=== PATIENT | male | born 1950 | race Caucasian/White ===

== ENCOUNTER 2016-09-11 22:35 | Inpatient (IN) | payer OTHER ==
[~2016-09-11] VITALS: Ht 177.8 cm; Wt 89.5 kg
--- NOTE | ~2016-09-11 | CON ---
[place], [place] REPORT OF CONSULTATION NAME: SENAIT VOGT UNIT #: [id number] ROOM: 531 DOCTOR: JULIA UNDERWOOD,DELON Bledsoe BIRTHDATE: [birth year] DOS: 09/12/2016 ADDENDUM: I agree with the above plans to treat this patient after reviewing the chart, labs and radiographs. Follow the patient up clinically and adjust accordingly. DELON DUMONT MD CM:CONSTR:REPORT OF CONSULTATION 1544 10/22/16 0555 interface
--- NOTE | ~2016-09-11 | CON ---
[place], [place] REPORT OF CONSULTATION NAME: SENAIT VOGT UNIT #: [id number] ROOM: 531 DOCTOR: AMEENA BOWENS,NOVEMBER BIRTHDATE: [birth year] DOS: HISTORY OF PRESENT ILLNESS: The patient is a pleasant 65-year-old male who was admitted with intoxication and chest pain overnight. He had had chest pain intermittently for approximately 3 days. He gave a history of a tick bite in his left upper extremity. There was concern that the entire tick had not been removed. He, according to the nurse resident, did explore the area this morning. He was started on doxycycline, there was also concern for possible pneumonia on his chest x-ray when he was admitted; however, he has had a CT of the chest that did not demonstrate any infiltrate. He has no cough. He has had no fevers or shaking chills and he has a normal white count. He denies any headache, dizziness, or rashes. PAST MEDICAL HISTORY: As above as well as essential hypertension, GERD, hiatal hernia, hyperlipidemia, peripheral neuropathy, inguinal hernia, CABG x 4, coronary artery stent. SOCIAL HISTORY: Alcohol abuse with 3-6 shots of whisky per day, reportedly more per the family. He stopped smoking in 1991, had approximately a [id number] history. No illicit drug use. 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 FAMILY MEDICAL HISTORY: Mother at the age of 86 of unknown causes. Father in his 60s from pancreatic cancer. ALLERGIES: Include DEMEROL. LABORATORY DATA: WBCs 4.1, platelets 184, BUN 12, creatinine 0.74. AST 53, ALT 42. His troponin is normal, as is his CK-MB. CRP 0.57, lipase 194. Blood cultures are sterile. REVIEW OF SYSTEMS: Alert and oriented, feels well. Denies any fevers or chills. No cough or shortness of breath. He did have chest pain that has since improved. No nausea, vomiting or diarrhea. No joint pain or swelling. No headache or dizziness. No rashes. No dysuria or frequency. No hemoptysis, no issues with blood dyscrasias or bleeding. PHYSICAL EXAMINATION: VITAL SIGNS: Show temperature 98.4, pulse 70, respirations 18, BP 145/86. GENERAL: A 65-year-old male, in no acute distress. HEAD, EYES, EARS, NOSE, AND THROAT: Normocephalic, no thrush. LUNGS: Clear to auscultation bilaterally. Respirations are even and unlabored. HEART: Regular rhythm. No murmur appreciated. ABDOMEN: Soft, nontender, positive bowel sounds. Mildly obese. EXTREMITIES: No edema, deformity or cyanosis. Left upper extremity where he allegedly had a tick bite is unremarkable for any rash or bull's eye lesion. SKIN: Warm, dry and intact, free of rashes. ASSESSMENT: CT does not demonstrate pneumonia nor is he symptomatic for any pneumonia. He is not symptomatic for Lyme's nor does he have any indication from a characteristic rash, etc. I did discuss this with him. At this point, I [place], [place] REPORT OF CONSULTATION NAME: SENAIT VOGT UNIT #: [id number] ROOM: 531 DOCTOR: AMEENA BOWENSNOVEMBER BIRTHDATE: [birth year] will stop his doxycycline. He would be okay to discharge from an ID perspective. Case discussed with Dr. Delon Dumont. NANCY LINDQUIST CNP DELON DUMONT MD CM:CONSTR:REPORT OF CONSULTATION 20 09/12/161854 interface
--- NOTE | ~2016-09-11 | PR ---
[place], [place] PROGRESS NOTE NAME: SENAIT VOGT [facility] #: [id number] UNIT #: [id number] ROOM: 531 DOCTOR: STEPHANIE FREEMAN MD BIRTHDATE: [birth year] DOS: 09/13/2016 CARDIOLOGY FOLLOWUP VISIT NOTE REASON FOR VISIT: Chest pain. HISTORY OF PRESENT ILLNESS: The patient is feeling better. Denies any chest pain or shortness of breath. No palpitation, no dizziness. No PND. He denies any edema, orthopnea. He only complains some burning in his feet, some neuropathy. REVIEW OF SYSTEMS: Review of the 8 systems negative. RHYTHM STRIPS: The patient was in nonmonitored floor. PHYSICAL EXAMINATION: VITAL SIGNS: Blood pressure 148/82, pulse 69, respiration rate 18. GENERAL: Alert, comfortable, in no acute distress. HEENT: Pupils are round and equal. No jaundice. Tongue was moist and pharynx was clear. NECK: Supple, no distended neck veins, no carotid bruit. Thyroid not palpable. CHEST: Chest wall was symmetrical, nontender. LUNGS: Clear to auscultation bilaterally. HEART: Regular rhythm, no S3, no palpable thrills. ABDOMEN: Obese, nontender. Bowel sounds normal. EXTREMITIES: Showed no edema. Distal pulses are palpable. SKIN: Warm and dry. No cyanosis, no clubbing. NEUROLOGIC: The patient is alert, oriented. No focal neurologic deficit. DIAGNOSTIC TESTS: Review of the diagnostic test. CBC unremarkable. Hemoglobin 12.9. Chemistry showed potassium 3.3, creatinine 0.77 IMPRESSION: 1. Atypical chest pain, myocardial infarction ruled out. 2. History of coronary artery disease, status post multiple stents, possibly five stents per patient, the recent stent was in 2005. 3. Hypertension. 4. Obesity. 5. Mild anemia. 6. Tick bite. 7. Mild hypokalemia. RECOMMENDATIONS: 1. He has no further chest pain. He stated that he had stress test about 6 months ago unremarkable, he is also anticipating hiatal hernia surgery. 2. Resume his home aspirin, statins and also beta blockers. He states he takes metoprolol at home. He can be discharged from the cardiac point and follow up with his [place] physician also Dr. 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 [place], [place] PROGRESS NOTE NAME: SENAIT VOGT UNIT #: [id number] ROOM: 531 DOCTOR: PETE UNDERWOOD,STEPHANIE BIRTHDATE: [birth year] Above treatment was discussed with the patient and his family members who are at bedside and all questions were answered. 3. Risk factor modification for diet, exercise, and weight loss were discussed. STEPHANIE FREEMAN MD CM:LULY 1235 [id number] STEPHANIE FREEMAN MD 09/14/16 0928 interface
--- NOTE | ~2016-09-11 | CON ---
[place], [place] REPORT OF CONSULTATION NAME: SENAIT VOGT UNIT #: [id number] ROOM: 531 DOCTOR: PETE UNDERWOOD,STEPHANIE BIRTHDATE: [birth year] DOS: 09/12/2016 CARDIOLOGY CONSULTATION CONSULTING PHYSICIAN: Yany Hale DO PRIMARY CARE PHYSICIAN: Sylvester Barber MD REASON FOR CONSULTATION: Chest pain. HISTORY OF PRESENT ILLNESS: The patient is a 65-year-old gentleman with history of coronary artery disease, obesity, came to the Emergency Room with chest pain. He is known to Dr. Booth in [place], [place], and he had a previous history of "5 stents" per him, records not available. Apparently, he is having intermittent chest pain for the past 2-3 days prior to presentation to the Emergency Room. This pain came at rest while sitting in front of computer. This pain was started in the substernal area. There is no radiation of this pain, no associated nausea, diaphoresis, or shortness of breath. The pain is moderate, on a scale of 10, it is 6/10. He takes three sublingual nitroglycerin tablets with some relief. He also admitted to drinking some whisky. Apparently, there is some history of recurrent falls, but no syncope. He is saying sometimes he had some cold sweats with his chest pain, but denied any fever or chills. He was eventually brought to the Emergency Room, was admitted to the hospital and Cardiology was consulted for his chest pain, but he denied any fever or chills. No PND, no orthopnea, no palpitations or dizziness. No nausea, vomiting or diarrhea. No headache. No tingling, numbness or weakness. No hematuria, no dysuria. REVIEW OF SYSTEMS: Review of the 8 systems negative except as mentioned above. PAST MEDICAL HISTORY: 1. Coronary artery disease, status post multiple stents about five stents, last stent was around 2005 per patient, details unknown. 2. Exogenous obesity. 3. Dyslipidemia. 4. Hypertension. 5. Hiatal hernia. 6. GERD. PAST SURGICAL HISTORY: History of coronary artery stents. SOCIAL HISTORY: The patient does not smoke or use illicit drugs, but he drinks 3-6 shots of whiskey a day. FAMILY HISTORY: Mother from unknown causes. Father had pancreatic cancer, . ALLERGIES: No known drug allergies. 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 [place], [place] REPORT OF CONSULTATION NAME: SENAIT VOGT UNIT #: [id number] ROOM: 531 DOCTOR: PETE UNDERWOOD,STEPHANIE BIRTHDATE: [birth year] HOME MEDICATIONS: Reviewed including aspirin, atorvastatin, amlodipine, omeprazole and Nitrostat. PHYSICAL EXAMINATION: VITAL SIGNS: Blood pressure 150/90, pulse 70, respiration was 18. Weight 90.4 kilos with a BMI 28.6. GENERAL: Alert, comfortable, in no acute distress. HEENT: Pupils are round and equal. No jaundice. Tongue was moist and pharynx was clear. NECK: Supple, no distended neck veins, no carotid bruit. Thyroid is not palpable. CHEST: Symmetrical, nontender. LUNGS: Clear to auscultation bilaterally. HEART: Regular rhythm, no S3, grade 1/6 systolic murmur. No palpable thrills. ABDOMEN: Obese, nontender. Bowel sounds normal. No palpable mass. EXTREMITIES: Showed no edema. Distal pulses are palpable. SKIN: Warm and dry. No cyanosis, no clubbing. NEUROLOGIC: The patient is alert, oriented. No focal neurologic deficits. MUSCULOSKELETAL: No joint tenderness or swelling. PSYCHIATRIC: The patient is alert, oriented with good mood and affect. REVIEW OF THE DIAGNOSTIC TESTS: EKG showed sinus rhythm. Pertinent labs including cardiac troponins are negative. Hemoglobin 12.3, platelets 184,000. Potassium 3.3, supplemented; creatinine 0.77. Alcohol was 200. Total cholesterol 139, LDL 44, HDL 55, triglycerides 201. Vitamin D 27. TSH is normal. IMPRESSION: 1. Chest pain, atypical, myocardial infarction ruled out. 2. History of coronary artery disease, status post 5 stents, last stent was about 2005, details unknown. 3. Possible left lower lobe pneumonia. 4. Alcohol use. 5. Non-morbid obesity. 6. Hypertension. 7. Questionable falls. 8. Vitamin D deficiency. RECOMMENDATIONS: His chest pain is atypical. Continue his aspirin and statins. I would recommend low-dose beta blockers, but he will discuss with his type disk quality control supervisor after discharge, meanwhile continue his amlodipine. He can be discharged home from the cardiac standpoint and follow up with his type disk quality control supervisor, Dr. Booth in 1-2 weeks in [place]. [place], [place] REPORT OF CONSULTATION NAME: SENAIT VOGT UNIT #: [id number] ROOM: 531 DOCTOR: STEPHANIE FREEMAN MD BIRTHDATE: [birth year] He also goes to [facility] as needed. Risk factor modification, especially to diet, exercise, and weight loss as well as to quit smoking was discussed. STEPHANIE FREEMAN MD CM:CONSTR:REPORT OF CONSULTATION 1542 09/14/16 0450 interface
[2016-09-11 20:00] VITALS: BP 147/86
[2016-09-11 22:35] VITALS: BP 151/99
[~2016-09-11 22:35] MED LIST: AMLODIPINE BESYL5 MG PO; ASPIR-LOX325 MG PO; ASPIRIN325 M2 PO; ATORVASTATIN CA80 M1 PO; CIPROFLOXACIN500 MG PO; CRESTOR40 MG PO; DEPRESSION MED; ISORDIL TITRADO30 MG PO; LEVOFLOXACIN500 MG PO; LOPRESSOR25 MG PO; Lopressor25 MG PO; NEURONTIN300 MG PO; NIACIN1000 MG PO; NITROSTAT0.4 MG SL; NORVASC2.5 MG PO; OMEPRAZOLE40 MG PO; PRILOSEC20 M1 PO; VENLAFAXINE HY150 M1 PO; VOLTAREN GEL1% TP
[2016-09-11 22:55] LABS: BASO % 0.4 % (0.0-1.0); EOS # 0.1 10*3/uL (0.0-0.4); EOS % 1.2 % (1.0-4.0); HEMATOCRIT 39.4 % (42.0-52.0); HEMOGLOBIN 13.3 g/dl (14.0-18.0); LYMPH # 2.6 10*3/uL (1.3-4.4); LYMPH % 35.1 % (27.0-41.0); MEAN CORPUSCULAR HGB 32.8 pg (27.0-31.0); MEAN CORPUSCULAR HGB CONC 33.8 g/dl (33.0-37.0); MEAN PLATELET VOLUME 10.3 fl (9.6-12.3); MONO # 1.2 10*3/uL (0.1-1.0); MONO % 15.7 % (3.0-9.0); NEUT # 3.5 10*3/uL (2.3-7.9); NEUT % 47.5 % (47.0-73.0); PLATELET COUNT AUTOMATED 217 10*3/uL (130-400); RED BLOOD COUNT 4.06 10*6/uL (4.50-5.90); RED CELL DISTRI WIDTH 12.7 % (0-14.5); WHITE BLOOD COUNT 7.4 10*3/uL (4.8-10.8)
[2016-09-11 23:03] LABS: PROTHROMBIN TIME 10.7 SECONDS (9.0-12.4)
[2016-09-11 23:11] LABS: ALBUMIN 3.7 gm/dl (3.1-4.5); ALKALINE PHOSPHATASE 95 U/L (45-117); BILIRUBIN, TOTAL 0.4 mg/dl (0.2-1.0); BUN 13 mg/dl (7-24); C-REACTIVE PROTEIN 0.57 MG/DL (0-0.3); CARBON DIOXIDE 22 mmol/L (21-32); CHLORIDE 108 mmol/L (98-107); CKMB 0.8 ng/ml (0.5-3.6); CPK 91 U/L (39-308); EST GLOM FILT AFRICAN AMERICAN > 60 ml/min; GLUCOSE 98 mg/dL (65-99); MAGNESIUM 1.9 mg/dL (1.5-2.1); POTASSIUM 3.3 mmol/L (3.5-5.1); SGOT/AST 67 IU/L (3-35); SGPT/ALT 51 U/L (12-78); SODIUM 142 mmol/L (136-145); TOTAL PROTEIN 8.2 gm/dL (6.4-8.2)
[2016-09-11 23:12] LABS: TROPONIN I < 0.015 ng/ml (<0.5)
[2016-09-11 23:15] VITALS: BP 160/100
[2016-09-11 23:45] VITALS: BP 130/84
[2016-09-12 00:50] VITALS: BP 158/54
[2016-09-12 06:11] LABS: BASO % 0.2 % (0.0-1.0); EOS # 0.1 10*3/uL (0.0-0.4); EOS % 2.7 % (1.0-4.0); HEMOGLOBIN 12.3 g/dl (14.0-18.0); LYMPH # 1.5 10*3/uL (1.3-4.4); LYMPH % 36.3 % (27.0-41.0); MEAN CELL VOLUME 96.8 fl (80.0-94.0); MEAN CORPUSCULAR HGB 33.1 pg (27.0-31.0); MEAN CORPUSCULAR HGB CONC 34.2 g/dl (33.0-37.0); MEAN PLATELET VOLUME 10.5 fl (9.6-12.3); MONO # 0.6 10*3/uL (0.1-1.0); MONO % 14.6 % (3.0-9.0); NEUT # 1.9 10*3/uL (2.3-7.9); PLATELET COUNT AUTOMATED 184 10*3/uL (130-400); RED BLOOD COUNT 3.72 10*6/uL (4.50-5.90); RED CELL DISTRI WIDTH 12.7 % (0-14.5); WHITE BLOOD COUNT 4.1 10*3/uL (4.8-10.8)
[2016-09-12 06:21] LABS: CKMB 0.7 ng/ml (0.5-3.6); CPK 70 U/L (39-308)
[2016-09-12 06:36] LABS: TROPONIN I < 0.015 ng/ml (<0.5)
[2016-09-12 06:51] LABS: ALBUMIN 3.1 gm/dl (3.1-4.5); ALKALINE PHOSPHATASE 87 U/L (45-117); BILIRUBIN, TOTAL 0.5 mg/dl (0.2-1.0); BUN 12 mg/dl (7-24); CARBON DIOXIDE 25 mmol/L (21-32); CHLORIDE 110 mmol/L (98-107); CHOLESTEROL 139 mg/dL (<200); EST GLOM FILT AFRICAN AMERICAN > 60 ml/min; GLUCOSE 82 mg/dL (65-99); HDL CHOLESTEROL 55 mg/dl (40-60); LDL CHOLESTEROL 44 mg/dL (9-159); MAGNESIUM 1.7 mg/dL (1.5-2.1); PHOSPHOROUS 3.1 mg/dL (2.5-4.9); POTASSIUM 3.2 mmol/L (3.5-5.1); SGOT/AST 53 IU/L (3-35); SGPT/ALT 42 U/L (12-78); SODIUM 146 mmol/L (136-145); TOTAL PROTEIN 6.8 gm/dL (6.4-8.2); TRIGLYCERIDES 201 mg/dl (<150); VLDL CHOLESTEROL 40 mg/dL (6-40)
[2016-09-12 06:58] LABS: HEMOGLOBIN A1c 5.9 % (4.8-5.6)
[2016-09-12 07:49] LABS: FOLIC ACID 3.67 ng/mL (>5.38); VITAMIN D, 25-HYDROXY 27.1 ng/mL (30-100)
[2016-09-12 08:00] VITALS: BP 136/74
[2016-09-12 12:00] VITALS: BP 150/90
[2016-09-12 12:25] LABS: CKMB 0.5 ng/ml (0.5-3.6); CPK 70 U/L (39-308)
[2016-09-12 12:26] LABS: TROPONIN I < 0.015 ng/ml (<0.5)
[2016-09-12 16:00] VITALS: BP 145/86
[2016-09-12 18:36] LABS: CKMB < 0.5 ng/ml (0.5-3.6); CPK 69 U/L (39-308); TROPONIN I < 0.015 ng/ml (<0.5)
[2016-09-13] VITALS: BP 146/96
[2016-09-13 00:10] VITALS: BP 148/84
[2016-09-13 05:59] LABS: BUN 11 mg/dl (7-24); CARBON DIOXIDE 28 mmol/L (21-32); CHLORIDE 102 mmol/L (98-107); EST GLOM FILT AFRICAN AMERICAN > 60 ml/min; GLUCOSE 95 mg/dL (65-99); POTASSIUM 3.3 mmol/L (3.5-5.1); SODIUM 140 mmol/L (136-145)
[2016-09-13 06:05] LABS: BASO % 0.5 % (0.0-1.0); EOS # 0.1 10*3/uL (0.0-0.4); EOS % 2.4 % (1.0-4.0); HEMATOCRIT 36.8 % (42.0-52.0); HEMOGLOBIN 12.9 g/dl (14.0-18.0); LYMPH # 1.5 10*3/uL (1.3-4.4); LYMPH % 34.3 % (27.0-41.0); MEAN CELL VOLUME 96.1 fl (80.0-94.0); MEAN CORPUSCULAR HGB 33.7 pg (27.0-31.0); MEAN CORPUSCULAR HGB CONC 35.1 g/dl (33.0-37.0); MEAN PLATELET VOLUME 10.5 fl (9.6-12.3); MONO # 0.6 10*3/uL (0.1-1.0); MONO % 13.5 % (3.0-9.0); NEUT # 2.1 10*3/uL (2.3-7.9); NEUT % 49.1 % (47.0-73.0); PLATELET COUNT AUTOMATED 205 10*3/uL (130-400); RED BLOOD COUNT 3.83 10*6/uL (4.50-5.90); RED CELL DISTRI WIDTH 12.4 % (0-14.5); WHITE BLOOD COUNT 4.2 10*3/uL (4.8-10.8)
[2016-09-13 08:00] VITALS: BP 148/82
[2016-09-13] MEDS ORDERED: D-1000 185 MG-11 TAB PO (12:57)
[2016-09-13] MEDS ORDERED: VITAMIN B-11 TAB PO (12:57)
[2016-09-13] MEDS ORDERED: PHARMASSURE FO0.4 MG PO (12:57)
[2016-09-13] MEDS ORDERED: K-Lyte/Cl25 MEQ PO (12:57)
[2016-09-13] MEDS ORDERED: THERA TABS1 TAB PO (12:57)
[2016-09-13] MEDS ORDERED: TOPROL XL25 MG PO (12:58)
[2016-09-13] MEDS ORDERED: DOXYCYCLINE100 M3 PO (13:13)
[2016-09-13 13:14] LABS: URINE AMPHETAMINES < 1000 (1000ng/ml); URINE BARBITURATES < 200 (200ng/ml); URINE COCAINE < 300 (300ng/ml)
== END 2016-09-13 13:30 | disposition home or self-care (01) | DRG 194 ==
LOC: ED 22:35 → EDHOLD 23:36 → 5E 23:50
PROVIDERS: Emergency Medicine; Hospitalist; Internal Medicine
DX: J18.1 Lobar pneumonia, unspecified organism (principal); E44.0 Moderate protein-calorie malnutrition; I25.10 Atherosclerotic heart disease of native coronary artery without angina pectoris; S40.862D Insect bite (nonvenomous) of left upper arm, subsequent encounter; R29.6 Repeated falls; E87.6 Hypokalemia; L81.8 Other specified disorders of pigmentation; Y90.7 Blood alcohol level of 200-239 mg/100 ml; I10 Essential (primary) hypertension; K44.9 Diaphragmatic hernia without obstruction or gangrene; K21.9 Gastro-esophageal reflux disease without esophagitis; E78.2 Mixed hyperlipidemia; G62.1 Alcoholic polyneuropathy; F10.120 Alcohol abuse with intoxication, uncomplicated; E53.8 Deficiency of other specified B group vitamins; E55.9 Vitamin D deficiency, unspecified; D53.9 Nutritional anemia, unspecified; E66.8 Other obesity; Z80.0 Family history of malignant neoplasm of digestive organs; Z79.82 Long term (current) use of aspirin; Z95.1 Presence of aortocoronary bypass graft; Z95.5 Presence of coronary angioplasty implant and graft; Z79.899 Other long term (current) drug therapy; Z68.28 Body mass index [BMI] 28.0-28.9, adult

== ENCOUNTER 2017-05-10 14:26 | Emergency (ER) | payer MEDICARE, OTHER ==
[~2017-05-10] VITALS: Ht 177.8 cm; Wt 99.8 kg
[~2017-05-10 14:26] MED LIST changes: +D-1000 185 MG-11 TAB PO; +DOXYCYCLINE100 M3 PO; +K-Lyte/Cl25 MEQ PO; +PHARMASSURE FO0.4 MG PO; +THERA TABS1 TAB PO; +TOPROL XL25 MG PO; +VITAMIN B-11 TAB PO
[2017-05-10 15:08] LABS: BASO % 0.7 % (0.0-1.0); EOS # 0.1 10*3/uL (0.0-0.4); HEMATOCRIT 39.1 % (42.0-52.0); HEMOGLOBIN 13.4 g/dl (14.0-18.0); MEAN CELL VOLUME 95.6 fl (80.0-94.0); MEAN CORPUSCULAR HGB 32.8 pg (27.0-31.0); MEAN CORPUSCULAR HGB CONC 34.3 g/dl (33.0-37.0); MEAN PLATELET VOLUME 10.1 fl (9.6-12.3); MONO # 0.5 10*3/uL (0.1-1.0); MONO % 11.1 % (3.0-9.0); NEUT # 2.7 10*3/uL (2.3-7.9); PLATELET COUNT AUTOMATED 200 10*3/uL (130-400); RED BLOOD COUNT 4.09 10*6/uL (4.50-5.90); RED CELL DISTRI WIDTH 12.8 % (0-14.5); WHITE BLOOD COUNT 4.3 10*3/uL (4.8-10.8)
[2017-05-10 15:17] LABS: ACT PARTIAL THROMBO TIME 24.3 SECONDS (20.8-31.5)
[2017-05-10 15:23] LABS: ALBUMIN 3.4 gm/dl (3.1-4.5); ALKALINE PHOSPHATASE 105 U/L (45-117); BUN 15 mg/dl (7-24); CHLORIDE 109 mmol/L (98-107); CKMB 2.1 ng/ml (0.5-3.6); CPK 551 U/L (39-308); LIPASE 194 U/L (73-393); MAGNESIUM 1.8 mg/dL (1.5-2.1); POTASSIUM 3.7 mmol/L (3.5-5.1); SGOT/AST 91 IU/L (3-35); SGPT/ALT 43 U/L (12-78); SODIUM 141 mmol/L (136-145); TOTAL PROTEIN 8.1 gm/dL (6.4-8.2)
[2017-05-10 15:24] LABS: TROPONIN I < 0.015 ng/ml (<0.045)
[2017-05-10 16:39] LABS: BILIRUBIN NEGATIVE (NEGATIVE); BLOOD NEGATIVE (NEGATIVE); CLARITY CLEAR (CLEAR); COLOR YELLOW (YELLOW); GLUCOSE NEGATIVE (NEGATIVE); KETONE NEGATIVE (NEGATIVE); LEUKO ESTERASE NEGATIVE (NEGATIVE); NITRITE NEGATIVE (NEGATIVE); SPECIFIC GRAVITY 1.025 (1.005-1.030)
[2017-05-10 16:46] LABS: BACTERIA 1+; EPITHELIAL CELLS 0-2; WBC 0-2 wbc/hpf (0-5)
[2017-05-10 16:47] LABS: MUCOUS 1+
[2017-05-10] MEDS ORDERED: CEPHALEXIN500 M1 PO (16:48)
== END 2017-05-10 16:58 | disposition left against medical advice (07) ==
LOC: ED 14:26
PROVIDERS: Nurse Practitioner Family
DX: S91.301A Unspecified open wound, right foot, initial encounter (principal); R55 Syncope and collapse; I10 Essential (primary) hypertension; K21.9 Gastro-esophageal reflux disease without esophagitis; E78.2 Mixed hyperlipidemia; G62.9 Polyneuropathy, unspecified; Z88.6 Allergy status to analgesic agent; Z79.82 Long term (current) use of aspirin; Z79.899 Other long term (current) drug therapy

== ENCOUNTER → 2017-06-24 | Outpatient (CLI) | payer OTHER, MEDICARE ==
[~2017-06-24] MED LIST changes: +CEPHALEXIN500 M1 PO
== END ==
LOC: US 11:01
DX: K76.0 Fatty (change of) liver, not elsewhere classified (principal); Z72.89 Other problems related to lifestyle

== ENCOUNTER 2017-08-15 14:33 | Emergency (ER) | payer MEDICARE, OTHER ==
[~2017-08-15] VITALS: Ht 177.8 cm; Wt 90.7 kg
--- NOTE | ~2017-08-15 | EKG ---
[place], [place] ELECTROCARDIOGRAM REPORT NAME: SENAIT VOGT UNIT #: [id number] ROOM: DOCTOR: PETE UNDERWOOD,STEPHANIE BIRTHDATE: [birth year] DOS: 08/15/2017 TIME: 1531 hours. IMPRESSION: 1. Sinus rhythm. 2. Nonspecific ST-T changes. 3. Normal QT interval. STEPHANIE FREEMAN MD CM:EKGRPT:ELECTROCARDIOGRAM REPORT 1105 1129 STEPHANIE FREEMAN MD
[2017-08-15] MEDS ORDERED: NALTREXONE HCL50 MG PO (15:07)
[2017-08-15 15:37] LABS: BASO # 0.1 10*3/uL (0.0-0.1); BASO % 0.8 % (0.0-1.0); EOS # 0.4 10*3/uL (0.0-0.4); EOS % 6.9 % (1.0-4.0); HEMATOCRIT 39.3 % (42.0-52.0); HEMOGLOBIN 13.4 g/dl (14.0-18.0); LYMPH # 1.4 10*3/uL (1.3-4.4); MEAN CORPUSCULAR HGB 33.1 pg (27.0-31.0); MEAN CORPUSCULAR HGB CONC 34.1 g/dl (33.0-37.0); MEAN PLATELET VOLUME 10.3 fl (9.6-12.3); MONO # 0.6 10*3/uL (0.1-1.0); MONO % 9.4 % (3.0-9.0); NEUT # 3.7 10*3/uL (2.3-7.9); NEUT % 59.7 % (47.0-73.0); PLATELET COUNT AUTOMATED 220 10*3/uL (130-400); RED BLOOD COUNT 4.05 10*6/uL (4.50-5.90); RED CELL DISTRI WIDTH 13.4 % (0-14.5); WHITE BLOOD COUNT 6.3 10*3/uL (4.8-10.8)
[2017-08-15 15:59] LABS: ALBUMIN 3.4 gm/dl (3.1-4.5); ALKALINE PHOSPHATASE 96 U/L (45-117); BUN 14 mg/dl (7-24); CHLORIDE 107 mmol/L (98-107); CREATININE 0.88 mg/dL (0.70-1.30); LIPASE 133 U/L (73-393); POTASSIUM 3.8 mmol/L (3.5-5.1); SGOT/AST 75 IU/L (3-35); SGPT/ALT 58 U/L (12-78); SODIUM 140 mmol/L (136-145); TOTAL PROTEIN 7.8 gm/dL (6.4-8.2)
[2017-08-15 16:03] LABS: TROPONIN I < 0.015 ng/ml (<0.045)
== END 2017-08-15 21:03 ==
LOC: ED 14:33
PROVIDERS: Nurse Practitioner Family
DX: R07.9 Chest pain, unspecified (principal); R42 Dizziness and giddiness; R51 Headache; Z88.8 Allergy status to other drugs, medicaments and biological substances; Z79.82 Long term (current) use of aspirin; Z79.899 Other long term (current) drug therapy

== ENCOUNTER 2018-04-27 08:36 | Emergency (ER) | payer OTHER, MEDICARE ==
[~2018-04-27] VITALS: Ht 177.8 cm; Wt 79.4 kg
--- NOTE | ~2018-04-27 | EKG ---
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
[~2018-04-27 08:36] MED LIST changes: +CARAFATE1 G1 PO; +Motrin,Rufen800 MG PO; +NALTREXONE HCL50 MG PO; +OMEPRAZOLE20 M2 PO
[2018-04-27 09:07] LABS: BASO % 0.5 % (0.0-1.0); EOS # 0.2 10*3/uL (0.0-0.4); EOS % 3.4 % (1.0-4.0); HEMATOCRIT 46.9 % (42.0-52.0); HEMOGLOBIN 15.7 g/dl (14.0-18.0); LYMPH # 1.4 10*3/uL (1.3-4.4); MEAN CELL VOLUME 95.5 fl (80.0-94.0); MEAN CORPUSCULAR HGB CONC 33.5 g/dl (33.0-37.0); MEAN PLATELET VOLUME 9.6 fl (9.6-12.3); MONO # 0.8 10*3/uL (0.1-1.0); MONO % 13.1 % (3.0-9.0); NEUT # 3.5 10*3/uL (2.3-7.9); NEUT % 58.3 % (47.0-73.0); PLATELET COUNT AUTOMATED 241 10*3/uL (130-400); RED BLOOD COUNT 4.91 10*6/uL (4.50-5.90); RED CELL DISTRI WIDTH 13.1 % (0-14.5)
[2018-04-27 09:20] LABS: ACT PARTIAL THROMBO TIME 23.6 SECONDS (20.8-31.5)
[2018-04-27 09:21] LABS: ALBUMIN 3.5 gm/dl (3.1-4.5); ALKALINE PHOSPHATASE 89 U/L (45-117); BUN 13 mg/dl (7-24); CHLORIDE 104 mmol/L (98-107); CREATININE 1.06 mg/dL (0.70-1.30); LIPASE 208 U/L (73-393); POTASSIUM 3.8 mmol/L (3.5-5.1); SGOT/AST 17 IU/L (3-35); SGPT/ALT 18 U/L (12-78); SODIUM 138 mmol/L (136-145); TOTAL PROTEIN 7.6 gm/dL (6.4-8.2)
[2018-04-27 09:22] LABS: TROPONIN I < 0.015 ng/ml (<0.045)
[2018-04-27 13:09] LABS: BILIRUBIN NEGATIVE (NEGATIVE); BLOOD NEGATIVE (NEGATIVE); CLARITY CLEAR (CLEAR); COLOR YELLOW (YELLOW); GLUCOSE NEGATIVE (NEGATIVE); KETONE TRACE (NEGATIVE); LEUKO ESTERASE NEGATIVE (NEGATIVE); NITRITE NEGATIVE (NEGATIVE); PH 5.5 (5.0-9.0); SPECIFIC GRAVITY 1.015 (1.005-1.030); UROBILINOGEN 0.2 E.U./dl (0.2-1.0)
[2018-04-27 13:23] LABS: MUCOUS TRACE; RBC 0-2 rbc/hpf (0-2); WBC 0-2 wbc/hpf (0-5)
[2018-04-27] MEDS ORDERED: CYCLOBENZAPRINE10 MG PO (14:03)
[2018-04-27] MEDS ORDERED: NORCO 5-325 TA1 EACH PO (14:05)
== END 2018-04-27 14:33 | disposition home or self-care (01) ==
LOC: ED 08:36
PROVIDERS: Emergency Medicine
DX: S22.32XA Fracture of one rib, left side, initial encounter for closed fracture (principal); I25.10 Atherosclerotic heart disease of native coronary artery without angina pectoris; I10 Essential (primary) hypertension; K21.9 Gastro-esophageal reflux disease without esophagitis; E78.2 Mixed hyperlipidemia; Z88.8 Allergy status to other drugs, medicaments and biological substances; Z79.82 Long term (current) use of aspirin; Z79.899 Other long term (current) drug therapy; Z95.1 Presence of aortocoronary bypass graft; Z87.891 Personal history of nicotine dependence; V49.49XA Driver injured in collision with other motor vehicles in traffic accident, initial encounter; Y93.89 Activity, other specified; Y92.488 Other paved roadways as the place of occurrence of the external cause; Y99.8 Other external cause status

== ENCOUNTER 2018-05-15 18:13 | Emergency (ER) | payer MEDICARE ==
[~2018-05-15] VITALS: Ht 177.8 cm; Wt 81.6 kg
[~2018-05-15 18:13] MED LIST changes: +CYCLOBENZAPRINE10 MG PO; +NORCO 5-325 TA1 EACH PO
== END 2018-05-15 20:08 | disposition home or self-care (01) ==
LOC: ED 18:13
DX: S22.32XA Fracture of one rib, left side, initial encounter for closed fracture (principal); I25.10 Atherosclerotic heart disease of native coronary artery without angina pectoris; I10 Essential (primary) hypertension; K21.9 Gastro-esophageal reflux disease without esophagitis; E78.2 Mixed hyperlipidemia; G62.9 Polyneuropathy, unspecified; Z87.891 Personal history of nicotine dependence; Z95.1 Presence of aortocoronary bypass graft; Z95.5 Presence of coronary angioplasty implant and graft; Z88.5 Allergy status to narcotic agent; Z79.899 Other long term (current) drug therapy; Z79.82 Long term (current) use of aspirin; V49.88XA Car occupant (driver) (passenger) injured in other specified transport accidents, initial encounter; Y93.89 Activity, other specified; Y92.413 State road as the place of occurrence of the external cause; Y99.9 Unspecified external cause status

== ENCOUNTER 2018-12-29 14:14 | Inpatient (IN) | payer MEDICARE ==
[~2018-12-29] VITALS: Ht 177.8 cm; Wt 92.1 kg
--- NOTE | ~2018-12-29 | EKG ---
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
--- NOTE | ~2018-12-29 | EKG ---
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
--- NOTE | ~2018-12-29 | CON ---
[place], [place] REPORT OF CONSULTATION NAME: SENAIT VOGT [facility] #: [id number] UNIT #: [id number] ROOM: 411 DOCTOR: STEPHANIE FREEMAN MD BIRTHDATE: [birth year] DOS: 12/30/2018 CARDIOLOGY CONSULTATION. REASON FOR CONSULTATION: Chest pain and coronary artery disease. HISTORY OF PRESENT ILLNESS: The patient of 68-year-old gentleman with history of coronary artery disease, hypertension, was presented with multiple symptoms, includes intermittent chest pain, both at rest and exertion; palpitations; shortness of breath; abdominal pain; nausea; vomiting; headache; fever and chills. He was also having some black tarry stools for the past 4 days. Chest pain in the mid sternal area, described as a pressure-like sensation, no radiation, no associated nausea or diaphoresis. The patient says that his pain did improve with nitroglycerin enroute by EMS. He was also having some occasional palpitations, but no associated dizziness or syncope. The GI was consulted for abdominal pain and black tarry stools. He denies any cough or hemoptysis. No fever or chills. No syncope. No bladder symptoms. He was seen in the [facility] by his physician, he was referred to the Emergency Room and then he was admitted to the hospital and Cardiology was consulted. He denies any further chest pains or shortness of breath. No PND, no orthopnea. REVIEW OF SYSTEMS: Review of 10 systems negative except as mentioned above. PAST MEDICAL HISTORY: 1. Coronary artery disease, status post multiple stents, details unknown. The last stent was about 2016. 2. Hypertension. 3. Non-morbid obesity. 4. Noncompliance with medications. 5. History of dyslipidemia. 6. Hiatal hernia. 7. Acid reflux. 8. Peripheral neuropathy. PAST SURGICAL HISTORY: History of coronary stents. SOCIAL HISTORY: The patient does not use illicit drugs. He is a former smoker. He does drink alcohol 1-2 drinks per month. FAMILY HISTORY: Mother is 86, with unknown medical history. Father had pancreatic cancer, in his 60s. ALLERGIES: The patient is allergic to DEMEROL. HOME MEDICATIONS: Reviewed. The patient stated that he takes aspirin and metoprolol. REVIEW OF THE DIAGNOSTIC TESTS: EKG and labs reviewed. Cardiac troponins are negative. Stress test from 03/2018 reviewed. [place], [place] REPORT OF CONSULTATION [facility]: [facility]IT [facility]GT [id number] UNIT #: [id number] ROOM: 411 DOCTOR: STEPHANIE FREEMAN MD BIRTHDATE: [birth year] PHYSICAL EXAMINATION: VITAL SIGNS: Blood pressure 128/69, pulse 84, respiratory rate was 18, weight 90.2 kilos, BMI 28.6. GENERAL: Alert, comfortable, in no acute distress. NECK: Supple. No distended neck veins. No carotid bruit. CHEST: Symmetrical, nontender. LUNGS: Clear to auscultation bilaterally. HEART: Regular rhythm, no S3, no palpable thrills. ABDOMEN: Obese, nontender. Bowel sounds normal. EXTREMITIES: Showed no edema. Distal pulses palpable. SKIN: Warm and dry. No cyanosis, no clubbing. RECTAL: Deferred. GENITOURINARY: Deferred. NEUROLOGIC: Alert, oriented. No focal neurologic deficit. PSYCHIATRIC: Alert, with good mood and affect. IMPRESSION: 1. Chest pain, atypical, myocardial infarction ruled out. 2. Intermittent palpitations. The patient has no tachy-arrhythmias since his hospitalization. 3. Coronary artery disease, status post multiple stents, last stent was in 2005, details unknown. 4. Some abdominal pain with nausea, vomiting as well as black tarry stools. 5. Intermittent palpitations. 6. Hypertension. 7. Noncompliance with medications. 8. Non-morbid obesity. RECOMMENDATIONS: 1. Lexiscan stress test today to rule out ischemia. 2. The patient advised to continue his aspirin 81 mg and also metoprolol 25 mg once daily and statins. 3. The patient is agreeable to follow up with [facility] after his discharge. 4. If the stress test is unremarkable, Cardiology will sign off. 5. Risk factor modification for diet, exercise, weight loss and also to be compliant with his medications and physician followup visits discussed. STEPHANIE FREEMAN MD CM:CONSTR:REPORT OF CONSULTATION 1823 12/31/18 0042 interface
--- NOTE | ~2018-12-29 | EKG ---
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
--- NOTE | ~2018-12-29 | ST ---
[place], [place] EXERCISE STRESS TEST REPORT NAME: SENAIT VOGT [facility] #: [id number] UNIT #: [id number] ROOM: 411 DOCTOR: PETE UNDERWOOD,STEPHANIE BIRTHDATE: [birth year] DOS: 12/30/2018 LEXISCAN STRESS TEST REASON FOR TEST: Chest pain. PHYSICAL EXAMINATION: NECK: Supple. LUNGS: Clear anteriorly. HEART: Regular rate and rhythm. PROTOCOL: Lexiscan protocol. Maximum heart rate 112. Peak blood pressure 124/80. SYMPTOMS: The patient is chest pain free. EKG: Resting EKG showed sinus rhythm. Stress EKG showed no ischemia, no arrhythmias. CONCLUSION: Clinically, the patient is chest pain free. EKG nonischemic. POST-STRESS COMPLICATIONS: None. The patient received a total of 0.4 mg Lexiscan. STEPHANIE FREEMAN MD CM:STRESS:EXERCISE STRESS TEST REPORT [id number] STEPHANIE FREEMAN MD
[2018-12-29 14:23] VITALS: BP 112/85
[2018-12-29 14:36] LABS: BASO % 0.1 % (0.0-1.0); HEMATOCRIT 42.7 % (42.0-52.0); LYMPH # 1.8 10*3/uL (1.3-4.4); LYMPH % 16.3 % (27.0-41.0); MEAN CELL VOLUME 93.2 fl (80.0-94.0); MEAN CORPUSCULAR HGB 32.8 pg (27.0-31.0); MEAN CORPUSCULAR HGB CONC 35.1 g/dl (33.0-37.0); MEAN PLATELET VOLUME 9.7 fl (9.6-12.3); MONO # 0.9 10*3/uL (0.1-1.0); MONO % 8.1 % (3.0-9.0); NEUT # 8.3 10*3/uL (2.3-7.9); NEUT % 75.1 % (47.0-73.0); PLATELET COUNT AUTOMATED 278 10*3/uL (130-400); RED BLOOD COUNT 4.58 10*6/uL (4.50-5.90); RED CELL DISTRI WIDTH 13.1 % (0-14.5)
[2018-12-29 14:45] LABS: ACT PARTIAL THROMBO TIME 23.6 SECONDS (20.0-32.1)
[2018-12-29 14:51] LABS: ALKALINE PHOSPHATASE 105 U/L (45-117); BUN 19 mg/dl (7-24); CHLORIDE 107 mmol/L (98-107); CREATININE 1.51 mg/dL (0.70-1.30); POTASSIUM 3.2 mmol/L (3.5-5.1); SGOT/AST 28 IU/L (3-35); SGPT/ALT 23 U/L (12-78); SODIUM 141 mmol/L (136-145); TOTAL PROTEIN 8.6 gm/dL (6.4-8.2)
[2018-12-29 14:55] LABS: TROPONIN I < 0.015 ng/ml (<0.045)
[2018-12-29 18:19] VITALS: BP 152/128
[2018-12-29 18:22] VITALS: BP 110/69
[2018-12-29] MEDS ORDERED: ASPIR LOW81 MG PO (18:38)
[2018-12-29 18:40] VITALS: BP 129/86
--- NOTE | 2018-12-29 18:47 | NUR ---
[facility] , under the services of BONNIE Grewal DO with a diagnosis of CHEST PAIN. Chief complaint is DENIES C/O AT THIS TIME. Patient arrived via bed from ER. Monitor applied. Initial assessment completed. Vital signs taken and recorded. BONNIE GREWAL DO notified of admission to the unit. Orders received. See assessment for past medical history, medications and allergies. Patient and/or family oriented to unit. [facility]. Clothing/patient valuable form completed. DERICK MEDELLIN
[2018-12-29 20:00] VITALS: BP 129/86
[2018-12-29 20:25] VITALS: BP 156/72
--- NOTE | 2018-12-29 21:20 | NUR ---
CALLED DR KINGSTON AND NOTIFIED THAT PT IS C/O NON RADIATING CHEST PAIN/ABDOMINAL PAIN. ORDER RECEIVED FOR NITRO 0.4 SUBLINGUALLY. PT MEDICATED AT THIS TIME. WILL MONITOR FOR EFFECTIVENESS. CALL LIGHT IN REACH.
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
--- NOTE | 2018-12-29 22:20 | NUR ---
NITRO EFFECTIVE, NO FURTHER C/O CHEST PAIN AT THIS TIME.
[2018-12-30] VITALS: BP 146/94
--- NOTE | 2018-12-30 01:11 | NUR ---
PT GIVEN NORCO AT THIS TIME FOR C/O HEADACHE AND BACK PAIN. WILL MONITOR FOR EFFECTIVENESS. CALL LIGHT IN REACH.
--- NOTE | 2018-12-30 02:11 | NUR ---
ESTUARDO EFFECTIVE PER PT.
--- NOTE | 2018-12-30 02:20 | NUR ---
ORDER RECEIVED FROM DR KINGSTON FOR K PAD FOR BACK PAIN. WILL APPLY TO PT.
[2018-12-30 02:37] VITALS: BP 120/58
--- NOTE | 2018-12-30 02:45 | NUR ---
IN TO PT ROOM, PT ASLEEP AT THIS TIME. WILL APPLY K PAD WHEN PT WAKES UP.
[2018-12-30 07:35] LABS: BASO % 0.2 % (0.0-1.0); EOS % 0.4 % (1.0-4.0); HEMATOCRIT 39.6 % (42.0-52.0); HEMOGLOBIN 13.2 g/dl (14.0-18.0); LYMPH % 21.3 % (27.0-41.0); MEAN CORPUSCULAR HGB 32.5 pg (27.0-31.0); MEAN CORPUSCULAR HGB CONC 33.3 g/dl (33.0-37.0); MONO % 10.7 % (3.0-9.0); NEUT # 6.4 10*3/uL (2.3-7.9); NEUT % 67.1 % (47.0-73.0); PLATELET COUNT AUTOMATED 223 10*3/uL (130-400); RED BLOOD COUNT 4.06 10*6/uL (4.50-5.90); WHITE BLOOD COUNT 9.5 10*3/uL (4.8-10.8)
[2018-12-30 08:00] VITALS: BP 128/69
[2018-12-30 08:02] LABS: MEAN CELL VOLUME 97.5 fl (80.0-94.0)
[2018-12-30 08:22] LABS: VITAMIN D, 25-HYDROXY 30.5 ng/mL (30-100)
[2018-12-30 08:23] LABS: CHLORIDE 108 mmol/L (98-107); POTASSIUM 3.5 mmol/L (3.5-5.1); SODIUM 144 mmol/L (136-145)
[2018-12-30 08:37] LABS: BUN 13 mg/dl (7-24); CREATININE 0.96 mg/dL (0.70-1.30); FREE T4 1.06 ng/dl (0.76-1.46); PHOSPHOROUS 3.5 mg/dL (2.5-4.9); THYROID STIM HORMONE (HS) 0.695 uIU/ml (0.358-4.75)
--- NOTE | 2018-12-30 09:00 | NUR ---
[employer] Department Manager in to talk to patient. Patient states lives at home alone with alone. There are few steps in the home. Physician: boris [facility]: [facility] Home health services: none Patient's level of ADLs: INDEPENDENT Patient has working utilities: all working DME: none Follow-up physician's appointment after d/c: will be made by hospitalist nurse director upon discharge Does patient want to access PORTAL?: no Discharge plan discussed with patient, patient lives at home, is independent in adls and ambulation, patient states he will be going home when able and denies any home needs. TIEN TREVINO
[2018-12-30 12:00] VITALS: BP 110/69
--- NOTE | 2018-12-30 12:50 | NUR ---
DR.JAHDI SCALES OF CONSULT
--- NOTE | 2018-12-30 13:15 | NUR ---
INFORMED CONSENT OBTAINED FOR LEXISCAN NUCLEAR STRESS TEST WITH DR. FREEMAN. RESTING EKG NSR WITH A RESTING HR OF 78 WITH BP OF 102/64. LUNGS CLEAR WITH SPO2 OF 94% ON ROOM AIR. PT COMPLETED A 1:00 LEXISCAN PROTOCOL RECEIVING LEXISCAN 0.4 MG IV OVER 10 SECONDS. HAD NO CHEST PAIN OR ANY EKG CHANGES. HAD A PEAK HR OF 112 WITH BP OF 120/80. LAST RECOVERY HR OF 86 WITH BP OF 124/80. AWAITING SCANNING IN STABLE CONDITION.
--- NOTE | 2018-12-30 13:30 | NUR ---
NURSING UNIT CALLED INFORMING OF A DR. THOMPSON CONSULT AND PT NOW NPO. ALREADY ATE 1 CRACKER WITH PEANUT BUTTER AND SIPS OF A COLA. EXPLAINED TO PT AND REMAINDER OF FOOD REMOVED.
--- NOTE | 2018-12-30 15:00 | NUR ---
UNABLE TO DO EGD D/T PATIENT EATING A SANDWHICH, PT WAS INSTRUCTED PRIOR TO REMAIN NPO PER PATIENT HE WAS HUNGRY
[2018-12-30 16:00] VITALS: BP 130/73
[2018-12-30 20:00] VITALS: BP 117/81
--- NOTE | 2018-12-30 22:00 | NUR ---
ASSESSMENT COMPLETE ON PT AT THIS TIME. PT DENIES CHEST PAIN AND ANY OTHER PAIN AT THIS TIME. PT DENIES NEEDING ANYTHING. RESPIRATIONS EASY AND UNLABORED ON ROOM AIR. IV ANTIBIOTICS INFUSING WITH EASE. WILL CONTINUE TO MONITOR. CALL LIGHT IN REACH.
[2018-12-31] VITALS: BP 108/67
[2018-12-31 06:06] LABS: BUN 16 mg/dl (7-24); CHLORIDE 105 mmol/L (98-107); POTASSIUM 3.8 mmol/L (3.5-5.1); SODIUM 140 mmol/L (136-145)
[2018-12-31 06:09] LABS: BASO % 0.3 % (0.0-1.0); EOS # 0.1 10*3/uL (0.0-0.4); EOS % 1.8 % (1.0-4.0); HEMATOCRIT 38.2 % (42.0-52.0); HEMOGLOBIN 12.8 g/dl (14.0-18.0); LYMPH # 2.2 10*3/uL (1.3-4.4); LYMPH % 33.2 % (27.0-41.0); MEAN CELL VOLUME 98.2 fl (80.0-94.0); MEAN CORPUSCULAR HGB 32.9 pg (27.0-31.0); MEAN CORPUSCULAR HGB CONC 33.5 g/dl (33.0-37.0); MEAN PLATELET VOLUME 10.3 fl (9.6-12.3); MONO # 0.7 10*3/uL (0.1-1.0); MONO % 10.8 % (3.0-9.0); NEUT # 3.5 10*3/uL (2.3-7.9); NEUT % 53.3 % (47.0-73.0); PLATELET COUNT AUTOMATED 217 10*3/uL (130-400); RED BLOOD COUNT 3.89 10*6/uL (4.50-5.90); WHITE BLOOD COUNT 6.5 10*3/uL (4.8-10.8)
[2018-12-31 08:00] VITALS: BP 118/80
[2018-12-31 12:00] VITALS: BP 127/93
[2018-12-31 16:00] VITALS: BP 113/68
[2018-12-31 20:00] VITALS: BP 132/72
[2019-01-01] VITALS: BP 118/77
[2019-01-01 08:00] VITALS: BP 126/72
[2019-01-01 12:00] VITALS: BP 136/78
[2019-01-01] MEDS ORDERED: PREDNISONE10 MG PO (16:04)
[2019-01-01] MEDS ORDERED: DOXYCYCLINE100 M3 PO (16:04)
[2019-01-01] MEDS ORDERED: LIPITOR40 MG PO (16:04)
--- NOTE | 2019-01-01 17:13 | NUR ---
Discharge instructions reviewed with patient/family. Patient receptive and verbalizes understanding. Follow-up care arranged. Written instructions given to patient/family. BRIDGETT VILLAVICENCIO
== END 2019-01-01 17:13 | disposition home or self-care (01) | DRG 871 ==
LOC: ED 14:14 → 4E 17:25 → EDHOLD 17:25 → 4E 18:17
PROVIDERS: Emergency Medicine; Internal Medicine; Internal Medicine Nephrology; ADMIT Internal Medicine
PROC: 3E073KZ Introduction of Other Diagnostic Substance into Coronary Artery, Percutaneous Approach (ICD-10-PCS; principal; 2018-12-30)
PROC: 4A02XM4 Measurement of Cardiac Total Activity, External Approach (ICD-10-PCS; principal; 2018-12-30)
DX: A41.9 Sepsis, unspecified organism (principal); J18.9 Pneumonia, unspecified organism; N17.0 Acute kidney failure with tubular necrosis; I24.9 Acute ischemic heart disease, unspecified; K92.0 Hematemesis; J44.0 Chronic obstructive pulmonary disease with (acute) lower respiratory infection; R65.20 Severe sepsis without septic shock; F41.9 Anxiety disorder, unspecified; K21.9 Gastro-esophageal reflux disease without esophagitis; M94.0 Chondrocostal junction syndrome [Tietze]; R73.9 Hyperglycemia, unspecified; E66.8 Other obesity; R00.2 Palpitations; E83.42 Hypomagnesemia; E87.6 Hypokalemia; R10.13 Epigastric pain; I10 Essential (primary) hypertension; K44.9 Diaphragmatic hernia without obstruction or gangrene; F10.10 Alcohol abuse, uncomplicated; G62.9 Polyneuropathy, unspecified; I25.10 Atherosclerotic heart disease of native coronary artery without angina pectoris; E78.2 Mixed hyperlipidemia; Z91.81 History of falling; Z95.1 Presence of aortocoronary bypass graft; Z95.5 Presence of coronary angioplasty implant and graft; Z87.891 Personal history of nicotine dependence; Z80.0 Family history of malignant neoplasm of digestive organs; Z88.8 Allergy status to other drugs, medicaments and biological substances; Z79.82 Long term (current) use of aspirin; Z79.899 Other long term (current) drug therapy; Z91.14 Patient's other noncompliance with medication regimen; Z68.28 Body mass index [BMI] 28.0-28.9, adult

== ENCOUNTER → 2019-02-13 | Outpatient (CLI) | payer OTHER ==
[~2019-02-13] MED LIST changes: +ASPIR LOW81 MG PO; +LIPITOR40 MG PO; +PREDNISONE10 MG PO
== END | disposition home or self-care (01) ==
LOC: US 09:13
DX: Z13.6 Encounter for screening for cardiovascular disorders (principal); I10 Essential (primary) hypertension

== ENCOUNTER 2019-09-08 11:56 | Emergency (ER) | payer MEDICARE, OTHER ==
[~2019-09-08] VITALS: Ht 177.8 cm; Wt 93.9 kg
[2019-09-08 12:16] LABS: BASO % 0.5 % (0.0-1.0); EOS # 0.1 10*3/uL (0.0-0.4); EOS % 2.4 % (1.0-4.0); HEMATOCRIT 40.5 % (42.0-52.0); HEMOGLOBIN 13.7 g/dl (14.0-18.0); LYMPH # 1.3 10*3/uL (1.3-4.4); LYMPH % 22.5 % (27.0-41.0); MEAN CELL VOLUME 98.1 fl (80.0-94.0); MEAN CORPUSCULAR HGB 33.2 pg (27.0-31.0); MEAN CORPUSCULAR HGB CONC 33.8 g/dl (33.0-37.0); MEAN PLATELET VOLUME 9.9 fl (9.6-12.3); MONO # 0.6 10*3/uL (0.1-1.0); MONO % 9.6 % (3.0-9.0); NEUT # 3.9 10*3/uL (2.3-7.9); NEUT % 64.8 % (47.0-73.0); PLATELET COUNT AUTOMATED 222 10*3/uL (130-400); RED BLOOD COUNT 4.13 10*6/uL (4.50-5.90); RED CELL DISTRI WIDTH 13.4 % (0-14.5)
[2019-09-08 12:26] LABS: ACT PARTIAL THROMBO TIME 24.5 SECONDS (20.0-32.1); INTERNATIONAL NORM RATIO 0.9 (2.0-3.5)
[2019-09-08 12:33] LABS: ALBUMIN 3.7 gm/dl (3.1-4.5); ALKALINE PHOSPHATASE 80 U/L (45-117); BUN 20 mg/dl (7-24); CHLORIDE 114 mmol/L (98-107); CREATININE 1.33 mg/dL (0.70-1.30); LIPASE 121 U/L (73-393); POTASSIUM 3.8 mmol/L (3.5-5.1); SGOT/AST 17 IU/L (3-35); SGPT/ALT 19 U/L (12-78); SODIUM 146 mmol/L (136-145); TOTAL PROTEIN 7.4 gm/dL (6.4-8.2); TROPONIN I < 0.015 ng/ml (<0.045)
[2019-09-08] MEDS ORDERED: PHENERGAN25 M3 PO (13:55)
== END 2019-09-08 14:58 | disposition left against medical advice (07) ==
LOC: ED 11:56
PROVIDERS: Emergency Medicine
DX: K52.9 Noninfective gastroenteritis and colitis, unspecified (principal); I95.9 Hypotension, unspecified; E86.0 Dehydration; R79.1 Abnormal coagulation profile; I25.10 Atherosclerotic heart disease of native coronary artery without angina pectoris; I10 Essential (primary) hypertension; K21.9 Gastro-esophageal reflux disease without esophagitis; E78.2 Mixed hyperlipidemia; I25.2 Old myocardial infarction; Z87.891 Personal history of nicotine dependence; Z79.899 Other long term (current) drug therapy; Z79.82 Long term (current) use of aspirin; Z88.6 Allergy status to analgesic agent

== ENCOUNTER 2019-11-01 15:52 | Emergency (ER) | payer OTHER ==
[~2019-11-01] VITALS: Ht 177.8 cm; Wt 90.3 kg
[~2019-11-01 15:52] MED LIST changes: +PHENERGAN25 M3 PO
[2019-11-01 16:35] LABS: BASO % 0.5 % (0.0-1.0); EOS # 0.1 10*3/uL (0.0-0.4); EOS % 1.7 % (1.0-4.0); HEMATOCRIT 40.2 % (42.0-52.0); HEMOGLOBIN 13.9 g/dl (14.0-18.0); LYMPH # 1.3 10*3/uL (1.3-4.4); LYMPH % 22.1 % (27.0-41.0); MEAN CELL VOLUME 97.8 fl (80.0-94.0); MEAN CORPUSCULAR HGB 33.8 pg (27.0-31.0); MEAN CORPUSCULAR HGB CONC 34.6 g/dl (33.0-37.0); MEAN PLATELET VOLUME 9.6 fl (9.6-12.3); MONO # 0.7 10*3/uL (0.1-1.0); MONO % 12.1 % (3.0-9.0); NEUT # 3.8 10*3/uL (2.3-7.9); NEUT % 63.3 % (47.0-73.0); PLATELET COUNT AUTOMATED 258 10*3/uL (130-400); RED BLOOD COUNT 4.11 10*6/uL (4.50-5.90); RED CELL DISTRI WIDTH 13.6 % (0-14.5)
[2019-11-01 16:45] LABS: ACT PARTIAL THROMBO TIME 25.4 SECONDS (20.0-32.1)
[2019-11-01 16:55] LABS: ALBUMIN 3.6 gm/dl (3.1-4.5); ALKALINE PHOSPHATASE 93 U/L (45-117); BUN 10 mg/dl (7-24); CHLORIDE 107 mmol/L (98-107); CREATININE 0.97 mg/dL (0.70-1.30); POTASSIUM 3.7 mmol/L (3.5-5.1); SGOT/AST 20 IU/L (3-35); SGPT/ALT 19 U/L (12-78); SODIUM 140 mmol/L (136-145); TOTAL PROTEIN 7.5 gm/dL (6.4-8.2)
[2019-11-01 16:57] LABS: TROPONIN I < 0.015 ng/ml (<0.045)
== END 2019-11-01 18:58 | disposition left against medical advice (07) ==
LOC: ED 15:52
PROVIDERS: Emergency Medicine
DX: G45.9 Transient cerebral ischemic attack, unspecified (principal); I25.10 Atherosclerotic heart disease of native coronary artery without angina pectoris; E78.2 Mixed hyperlipidemia; I50.9 Heart failure, unspecified; I25.2 Old myocardial infarction; K21.9 Gastro-esophageal reflux disease without esophagitis; Z88.8 Allergy status to other drugs, medicaments and biological substances; F41.9 Anxiety disorder, unspecified; Z79.899 Other long term (current) drug therapy; Z79.82 Long term (current) use of aspirin; Z87.891 Personal history of nicotine dependence

== ENCOUNTER 2019-12-07 14:57 | Emergency (ER) | payer MEDICARE ==
[~2019-12-07] VITALS: Ht 177.8 cm; Wt 89.8 kg
[2019-12-07 15:45] LABS: BASO % 0.3 % (0.0-1.0); EOS # 0.1 10*3/uL (0.0-0.4); EOS % 0.8 % (1.0-4.0); HEMATOCRIT 44.1 % (42.0-52.0); LYMPH # 1.6 10*3/uL (1.3-4.4); LYMPH % 16.4 % (27.0-41.0); MEAN CELL VOLUME 98.9 fl (80.0-94.0); MEAN CORPUSCULAR HGB 33.4 pg (27.0-31.0); MEAN CORPUSCULAR HGB CONC 33.8 g/dl (33.0-37.0); MEAN PLATELET VOLUME 9.7 fl (9.6-12.3); MONO # 1.5 10*3/uL (0.1-1.0); MONO % 15.1 % (3.0-9.0); NEUT # 6.5 10*3/uL (2.3-7.9); NEUT % 67.1 % (47.0-73.0); PLATELET COUNT AUTOMATED 246 10*3/uL (130-400); RED BLOOD COUNT 4.46 10*6/uL (4.50-5.90); RED CELL DISTRI WIDTH 13.8 % (0-14.5); WHITE BLOOD COUNT 9.7 10*3/uL (4.8-10.8)
[2019-12-07 15:55] LABS: ACT PARTIAL THROMBO TIME 25.6 SECONDS (20.0-32.1)
[2019-12-07 15:59] LABS: ALBUMIN 3.8 gm/dl (3.1-4.5); ALKALINE PHOSPHATASE 88 U/L (45-117); BUN 22 mg/dl (7-24); CHLORIDE 105 mmol/L (98-107); CREATININE 1.02 mg/dL (0.70-1.30); LIPASE 119 U/L (73-393); POTASSIUM 3.4 mmol/L (3.5-5.1); SGOT/AST 22 IU/L (3-35); SGPT/ALT 21 U/L (12-78); SODIUM 136 mmol/L (136-145); TOTAL PROTEIN 8.4 gm/dL (6.4-8.2)
[2019-12-07 16:01] LABS: TROPONIN I < 0.015 ng/ml (<0.045)
== END 2019-12-07 18:47 | disposition left against medical advice (07) ==
LOC: ED 14:57
PROVIDERS: Physician Assistant
DX: R11.2 Nausea with vomiting, unspecified (principal); I11.0 Hypertensive heart disease with heart failure; I50.9 Heart failure, unspecified; I25.2 Old myocardial infarction; F41.9 Anxiety disorder, unspecified; F17.200 Nicotine dependence, unspecified, uncomplicated; Z88.8 Allergy status to other drugs, medicaments and biological substances; Z79.899 Other long term (current) drug therapy

== ENCOUNTER → 2020-08-19 | Outpatient (CLI) | payer MEDICARE | END | disposition home or self-care (01) | LOC: COVID19 15:52 | PROVIDERS: ATTEND Internal Medicine Nephrology | DX: Z20.828 Contact with and (suspected) exposure to other viral communicable diseases (principal) ==

== ENCOUNTER → 2020-08-27 | Outpatient (CLI) | payer MEDICARE ==
[2020-08-27 09:36] LABS: BASO % 0.2 % (0.0-1.0); EOS % 0.9 % (1.0-4.0); HEMATOCRIT 46.4 % (42.0-52.0); LYMPH # 1.3 10*3/uL (1.3-4.4); LYMPH % 29.6 % (27.0-41.0); MEAN CELL VOLUME 92.6 fl (80.0-94.0); MEAN CORPUSCULAR HGB 28.9 pg (27.0-31.0); MEAN CORPUSCULAR HGB CONC 31.3 g/dl (33.0-37.0); MEAN PLATELET VOLUME 10.8 fl (9.6-12.3); MONO # 0.5 10*3/uL (0.1-1.0); MONO % 11.1 % (3.0-9.0); NEUT # 2.4 10*3/uL (2.3-7.9); NEUT % 57.7 % (47.0-73.0); PLATELET COUNT AUTOMATED 240 10*3/uL (130-400); RED BLOOD COUNT 5.01 10*6/uL (4.50-5.90); RED CELL DISTRI WIDTH 15.3 % (0-14.5); WHITE BLOOD COUNT 4.2 10*3/uL (4.8-10.8)
[2020-08-27 09:54] LABS: ALBUMIN 3.6 gm/dl (3.1-4.5); ALKALINE PHOSPHATASE 105 U/L (45-117); BUN 13 mg/dl (7-24); CHLORIDE 106 mmol/L (98-107); CREATININE 1.02 mg/dL (0.70-1.30); SGOT/AST 16 IU/L (3-35); SGPT/ALT 25 U/L (12-78); SODIUM 139 mmol/L (136-145); TOTAL PROTEIN 8.3 gm/dL (6.4-8.2)
[2020-08-27 10:00] LABS: TROPONIN I < 0.015 ng/ml (<0.045)
== END | disposition home or self-care (01) ==
LOC: LAB 09:15
PROVIDERS: ATTEND Internal Medicine Nephrology
DX: K44.9 Diaphragmatic hernia without obstruction or gangrene (principal); J20.9 Acute bronchitis, unspecified; R06.02 Shortness of breath

== ENCOUNTER → 2020-09-18 | Outpatient (CLI) | payer MEDICARE ==
[2020-09-18 11:24] LABS: CHOLESTEROL 165 mg/dL (<200); HDL CHOLESTEROL 46 mg/dl (40-60); LDL CHOLESTEROL 65 mg/dL (9-159); SGOT/AST 21 IU/L (3-35); SGPT/ALT 21 U/L (12-78); TRIGLYCERIDES 269 mg/dl (<150); VLDL CHOLESTEROL 54 mg/dL (6-40)
== END | disposition home or self-care (01) ==
LOC: LAB 10:34
PROVIDERS: ATTEND Internal Medicine Cardiovascular Disease
DX: I25.118 Atherosclerotic heart disease of native coronary artery with other forms of angina pectoris (principal)

== ENCOUNTER → 2020-11-13 | Outpatient (CLI) | payer MEDICARE ==
[2020-11-13 10:49] LABS: CHOLESTEROL 170 mg/dL (<200); HDL CHOLESTEROL 60 mg/dl (40-60); LDL CHOLESTEROL 33 mg/dL (9-159); SGOT/AST 18 IU/L (3-35); SGPT/ALT 25 U/L (12-78); TRIGLYCERIDES 387 mg/dl (<150); VLDL CHOLESTEROL 77 mg/dL (6-40)
== END | disposition home or self-care (01) ==
LOC: LAB 10:02
PROVIDERS: ATTEND Registered Nurse
DX: I25.118 Atherosclerotic heart disease of native coronary artery with other forms of angina pectoris (principal)

== ENCOUNTER → 2020-12-05 | Outpatient (CLI) | payer MEDICARE ==
[2020-12-05 15:57] LABS: ALBUMIN 3.6 gm/dl (3.1-4.5); ALKALINE PHOSPHATASE 113 U/L (45-117); BUN 14 mg/dl (7-24); CHLORIDE 108 mmol/L (98-107); CREATININE 0.97 mg/dL (0.70-1.30); SGOT/AST 22 IU/L (3-35); SGPT/ALT 27 U/L (12-78); SODIUM 140 mmol/L (136-145)
== END | disposition home or self-care (01) ==
LOC: LAB 14:47
PROVIDERS: ATTEND Internal Medicine
DX: R11.10 Vomiting, unspecified (principal)

== ENCOUNTER → 2021-02-14 | Outpatient (CLI) | payer MEDICARE ==
[2021-02-14 11:59] LABS: CREATININE 1.67 mg/dL (0.70-1.30); POTASSIUM 3.7 mmol/L (3.5-5.1)
== END | disposition home or self-care (01) ==
LOC: LAB 11:06
PROVIDERS: ATTEND Registered Nurse
DX: I25.10 Atherosclerotic heart disease of native coronary artery without angina pectoris (principal)

== ENCOUNTER 2021-05-21 11:47 | Inpatient (IN) | payer OTHER ==
[2021-05-21] VITALS (9 sets, daily range): BP systolic 59–110; BP diastolic 36–91
[~2021-05-21] VITALS: Ht 178 cm; Wt 83.0 kg
[2021-05-21 12:21] LABS: BASO % 0.4 % (0.0-1.0); EOS # 0.2 10*3/uL (0.0-0.4); EOS % 2.3 % (1.0-4.0); HEMATOCRIT 31.1 % (42.0-52.0); LYMPH # 1.2 10*3/uL (1.3-4.4); LYMPH % 15.3 % (27.0-41.0); MEAN CORPUSCULAR HGB 32.5 pg (27.0-31.0); MEAN CORPUSCULAR HGB CONC 32.2 g/dl (33.0-37.0); MONO % 12.1 % (3.0-9.0); NEUT # 5.5 10*3/uL (2.3-7.9); PLATELET COUNT AUTOMATED 273 10*3/uL (130-400); RED BLOOD COUNT 3.08 10*6/uL (4.50-5.90); RED CELL DISTRI WIDTH 12.7 % (0-14.5)
[2021-05-21 12:31] LABS: ACT PARTIAL THROMBO TIME 26.2 SECONDS (20.0-32.1)
[2021-05-21 12:39] LABS: ALBUMIN 2.7 gm/dl (3.1-4.5); ALKALINE PHOSPHATASE 76 U/L (45-117); BUN 74 mg/dl (7-24); CHLORIDE 103 mmol/L (98-107); CREATININE 6.09 mg/dL (0.70-1.30); LIPASE 431 U/L (73-393); POTASSIUM 3.7 mmol/L (3.5-5.1); SGOT/AST 35 IU/L (3-35); SGPT/ALT 40 U/L (12-78); SODIUM 136 mmol/L (136-145); TOTAL PROTEIN 7.2 gm/dL (6.4-8.2); TROPONIN I < 0.015 ng/ml (<0.045)
[2021-05-21 20:08] LABS: BILIRUBIN Negative (Negative); BLOOD Trace-Lysed (Negative); CLARITY Clear (Clear); COLOR Yellow (Yellow); GLUCOSE Negative (Negative); KETONE Negative (Negative); LEUKO ESTERASE Negative (Negative); NITRITE Negative (Negative); PH 5.5 (4.5-8.0); SPECIFIC GRAVITY 1.015 (1.001-1.030); UROBILINOGEN 0.2 E.U./dl (0.0-1.0)
[2021-05-21 20:19] LABS: EPITHELIAL CELLS 0-2; MUCOUS TRACE; RBC 0-2 rbc/hpf (0-2)
[2021-05-22] VITALS (7 sets, daily range): BP systolic 95–112; BP diastolic 63–73
[2021-05-22 05:46] LABS: ALBUMIN 2.6 gm/dl (3.1-4.5); CREATININE 2.9 mg/dL (0.70-1.30)
[2021-05-22 05:48] LABS: TOTAL PROTEIN 6.9 gm/dL (6.4-8.2)
[2021-05-22 06:17] LABS: BASO % 0.3 % (0.0-1.0); EOS # 0.2 10*3/uL (0.0-0.4); EOS % 3.1 % (1.0-4.0); HEMATOCRIT 32.6 % (42.0-52.0); LYMPH # 1.5 10*3/uL (1.3-4.4); LYMPH % 22.1 % (27.0-41.0); MEAN CELL VOLUME 101.6 fl (80.0-94.0); MEAN CORPUSCULAR HGB CONC 32.5 g/dl (33.0-37.0); MEAN PLATELET VOLUME 10.7 fl (9.6-12.3); MONO # 0.7 10*3/uL (0.1-1.0); MONO % 10.6 % (3.0-9.0); NEUT # 4.3 10*3/uL (2.3-7.9); PLATELET COUNT AUTOMATED 282 10*3/uL (130-400); RED BLOOD COUNT 3.21 10*6/uL (4.50-5.90); RED CELL DISTRI WIDTH 12.7 % (0-14.5); WHITE BLOOD COUNT 6.8 10*3/uL (4.8-10.8)
[2021-05-22] MEDS ORDERED: PANTOPRAZOLE SO40 MG PO (20:01)
[2021-05-22] MEDS ORDERED: CARVEDILOL12.5 MG PO (22:44)
[2021-05-22] MEDS ORDERED: PRAVASTATIN SOD20 MG PO (22:44)
[2021-05-22] MEDS ORDERED: ZESTORETIC 10-1 EACH PO (22:45)
[2021-05-22] MEDS ORDERED: NEURONTIN300 MG PO (22:46)
[2021-05-22] MEDS ORDERED: NORVASC5 MG PO (22:47)
[2021-05-23 06:52] LABS: IRON 117 ug/dL (65-175); TOTAL IRON BINDING CAPACITY 245 ug/dl (250-450)
[2021-05-23 06:53] LABS: ALBUMIN 3.1 gm/dl (3.1-4.5); ALKALINE PHOSPHATASE 95 U/L (45-117); CHLORIDE 108 mmol/L (98-107); CREATININE 1.21 mg/dL (0.70-1.30); POTASSIUM 4.7 mmol/L (3.5-5.1); SGOT/AST 19 IU/L (3-35); SGPT/ALT 33 U/L (12-78); SODIUM 138 mmol/L (136-145); TOTAL PROTEIN 8.3 gm/dL (6.4-8.2)
[2021-05-23 07:07] LABS: BUN 27 mg/dl (7-24)
[2021-05-23 07:22] LABS: HEMATOCRIT 36.3 % (42.0-52.0); MEAN CELL VOLUME 98.9 fl (80.0-94.0); MEAN CORPUSCULAR HGB 32.2 pg (27.0-31.0); MEAN CORPUSCULAR HGB CONC 32.5 g/dl (33.0-37.0); MEAN PLATELET VOLUME 10.5 fl (9.6-12.3); PLATELET COUNT AUTOMATED 356 10*3/uL (130-400); RED BLOOD COUNT 3.67 10*6/uL (4.50-5.90); RED CELL DISTRI WIDTH 12.3 % (0-14.5); WHITE BLOOD COUNT 6.1 10*3/uL (4.8-10.8)
[2021-05-23 09:50] LABS: PLATELET SUFFICIENCY NORMAL (NORMAL); TOTAL CELLS COUNTED 100 #CELLS
[2021-05-23 11:23] VITALS: BP 146/91
[2021-05-23 11:35] VITALS: BP 117/78
[2021-05-23 11:50] VITALS: BP 127/87
[2021-05-23 12:05] VITALS: BP 136/89
[2021-05-23 20:00] VITALS: BP 155/87
[2021-05-24] VITALS: BP 130/73
[2021-05-24 06:53] LABS: HEMATOCRIT 31.8 % (42.0-52.0); MEAN CELL VOLUME 98.5 fl (80.0-94.0); MEAN CORPUSCULAR HGB 32.8 pg (27.0-31.0); MEAN CORPUSCULAR HGB CONC 33.3 g/dl (33.0-37.0); MEAN PLATELET VOLUME 10.6 fl (9.6-12.3); PLATELET COUNT AUTOMATED 384 10*3/uL (130-400); RED BLOOD COUNT 3.23 10*6/uL (4.50-5.90); RED CELL DISTRI WIDTH 12.6 % (0-14.5); WHITE BLOOD COUNT 18.5 10*3/uL (4.8-10.8)
[2021-05-24 07:17] LABS: ALBUMIN 2.8 gm/dl (3.1-4.5); BUN 27 mg/dl (7-24); CHLORIDE 110 mmol/L (98-107); POTASSIUM 4.3 mmol/L (3.5-5.1); SGOT/AST 14 IU/L (3-35); SGPT/ALT 27 U/L (12-78); SODIUM 140 mmol/L (136-145); TOTAL PROTEIN 7.2 gm/dL (6.4-8.2)
[2021-05-24 07:18] LABS: ALKALINE PHOSPHATASE 80 U/L (45-117)
[2021-05-24 07:49] LABS: TOTAL CELLS COUNTED 100 #CELLS
[2021-05-24 07:50] LABS: PLATELET SUFFICIENCY NORMAL (NORMAL)
[2021-05-24 08:00] VITALS: BP 145/89
[2021-05-24 12:00] VITALS: BP 136/83
[2021-05-24 16:00] VITALS: BP 139/69
[2021-05-24 20:00] VITALS: BP 148/84
[2021-05-25] VITALS: BP 143/94
[2021-05-25 07:21] LABS: HEMATOCRIT 29.1 % (42.0-52.0); MEAN CELL VOLUME 98.6 fl (80.0-94.0); MEAN CORPUSCULAR HGB 32.5 pg (27.0-31.0); MEAN PLATELET VOLUME 10.5 fl (9.6-12.3); PLATELET COUNT AUTOMATED 383 10*3/uL (130-400); RED BLOOD COUNT 2.95 10*6/uL (4.50-5.90); RED CELL DISTRI WIDTH 12.7 % (0-14.5); WHITE BLOOD COUNT 16.3 10*3/uL (4.8-10.8)
[2021-05-25 07:39] LABS: ALBUMIN 2.7 gm/dl (3.1-4.5); ALKALINE PHOSPHATASE 72 U/L (45-117); BUN 28 mg/dl (7-24); CHLORIDE 106 mmol/L (98-107); SGOT/AST 15 IU/L (3-35); SGPT/ALT 26 U/L (12-78); SODIUM 139 mmol/L (136-145); TOTAL PROTEIN 6.6 gm/dL (6.4-8.2)
[2021-05-25 07:42] LABS: CREATININE 1.02 mg/dL (0.70-1.30)
[2021-05-25 08:00] VITALS: BP 148/61
[2021-05-25 08:11] LABS: PLATELET SUFFICIENCY NORMAL (NORMAL); TOTAL CELLS COUNTED 100 #CELLS
[2021-05-25 12:00] VITALS: BP 115/84
[2021-05-25 16:00] VITALS: BP 126/80
[2021-05-25 20:00] VITALS: BP 134/85
[2021-05-26] VITALS (7 sets, daily range): BP systolic 129–147; BP diastolic 81–92
[2021-05-26 06:46] LABS: HEMATOCRIT 29.4 % (42.0-52.0); MEAN CELL VOLUME 97.7 fl (80.0-94.0); MEAN CORPUSCULAR HGB 32.2 pg (27.0-31.0); MEAN PLATELET VOLUME 10.3 fl (9.6-12.3); NUCLEATED RED BLOOD CELL 0.1 10*3/uL (0.0-0.0); NUCLEATED RED BLOOD CELL 0.4 % (0.0-0.0); PLATELET COUNT AUTOMATED 425 10*3/uL (130-400); RED BLOOD COUNT 3.01 10*6/uL (4.50-5.90); RED CELL DISTRI WIDTH 12.7 % (0-14.5); WHITE BLOOD COUNT 16.9 10*3/uL (4.8-10.8)
[2021-05-26 07:05] LABS: ALBUMIN 2.5 gm/dl (3.1-4.5); ALKALINE PHOSPHATASE 68 U/L (45-117); BUN 29 mg/dl (7-24); CHLORIDE 107 mmol/L (98-107); CREATININE 1.03 mg/dL (0.70-1.30); POTASSIUM 3.9 mmol/L (3.5-5.1); SGOT/AST 14 IU/L (3-35); SGPT/ALT 24 U/L (12-78); SODIUM 140 mmol/L (136-145); TOTAL PROTEIN 6.3 gm/dL (6.4-8.2)
[2021-05-26 08:07] LABS: TOTAL CELLS COUNTED 100 #CELLS
[2021-05-26 08:08] LABS: PLATELET SUFFICIENCY HIGH (NORMAL)
[2021-05-26] MEDS ORDERED: CLOTRIMAZOLE TR10 MG PO (18:31)
[2021-05-26] MEDS ORDERED: PREDNISONE20 M1 PO (18:31)
[2021-05-26] MEDS ORDERED: Septra SS 400 MG-80 PO (18:31)
== END 2021-05-26 21:20 | disposition home or self-care (01) | DRG 515 ==
LOC: ED 11:47 → EDHOLD 13:56 → 4E 13:56 → EDHOLD 05-22 10:38 → 4E 05-22 19:21
PROVIDERS: Emergency Medicine; Internal Medicine Hematology & Oncology; Internal Medicine Nephrology; Podiatrist; ADMIT Internal Medicine; ATTEND Internal Medicine
PROC: 0DB58ZX Excision of Esophagus, Via Natural or Artificial Opening Endoscopic, Diagnostic (ICD-10-PCS; 2021-05-23)
PROC: 0DB68ZX Excision of Stomach, Via Natural or Artificial Opening Endoscopic, Diagnostic (ICD-10-PCS; 2021-05-23)
PROC: 03BT0ZX Excision of Left Temporal Artery, Open Approach, Diagnostic (ICD-10-PCS; principal; 2021-05-26)
PROC: 03BS0ZX Excision of Right Temporal Artery, Open Approach, Diagnostic (ICD-10-PCS; 2021-05-26)
DX: M31.6 Other giant cell arteritis (principal); N17.0 Acute kidney failure with tubular necrosis; E43 Unspecified severe protein-calorie malnutrition; G45.9 Transient cerebral ischemic attack, unspecified; K22.70 Barrett's esophagus without dysplasia; K44.9 Diaphragmatic hernia without obstruction or gangrene; I10 Essential (primary) hypertension; R73.9 Hyperglycemia, unspecified; E86.0 Dehydration; R22.1 Localized swelling, mass and lump, neck; I95.9 Hypotension, unspecified; R13.10 Dysphagia, unspecified; G62.9 Polyneuropathy, unspecified; E78.2 Mixed hyperlipidemia; K21.9 Gastro-esophageal reflux disease without esophagitis; F10.10 Alcohol abuse, uncomplicated; E87.8 Other disorders of electrolyte and fluid balance, not elsewhere classified; R29.6 Repeated falls; D64.9 Anemia, unspecified; Z88.8 Allergy status to other drugs, medicaments and biological substances; Z87.891 Personal history of nicotine dependence; Z95.5 Presence of coronary angioplasty implant and graft; Z95.1 Presence of aortocoronary bypass graft; Z80.0 Family history of malignant neoplasm of digestive organs; Z68.26 Body mass index [BMI] 26.0-26.9, adult; Z79.82 Long term (current) use of aspirin; Z79.1 Long term (current) use of non-steroidal anti-inflammatories (NSAID); Z20.822 Contact with and (suspected) exposure to COVID-19

== ENCOUNTER → 2021-06-06 | Outpatient (CLI) | payer MEDICARE ==
[~2021-06-06] MED LIST changes: +CARVEDILOL12.5 MG PO; +CLOTRIMAZOLE TR10 MG PO; +NORVASC5 MG PO; +PANTOPRAZOLE SO40 MG PO; +PRAVASTATIN SOD20 MG PO; +PREDNISONE20 M1 PO; +Septra SS 400 MG-80 PO; +ZESTORETIC 10-1 EACH PO
[2021-06-06 15:02] LABS: HEMATOCRIT 35.2 % (42.0-52.0); MEAN CELL VOLUME 101.7 fl (80.0-94.0); MEAN CORPUSCULAR HGB 33.2 pg (27.0-31.0); MEAN CORPUSCULAR HGB CONC 32.7 g/dl (33.0-37.0); MEAN PLATELET VOLUME 10.4 fl (9.6-12.3); PLATELET COUNT AUTOMATED 278 10*3/uL (130-400); RED BLOOD COUNT 3.46 10*6/uL (4.50-5.90); RED CELL DISTRI WIDTH 14.8 % (0-14.5); WHITE BLOOD COUNT 13.2 10*3/uL (4.8-10.8)
[2021-06-06 15:27] LABS: PLATELET SUFFICIENCY NORMAL (NORMAL); TOTAL CELLS COUNTED 100 #CELLS
[2021-06-06 15:28] LABS: BURR CELLS FEW
[2021-06-06 15:43] LABS: BUN 38 mg/dl (7-24); CHLORIDE 107 mmol/L (98-107); CREATININE 1.05 mg/dL (0.70-1.30); POTASSIUM 4.6 mmol/L (3.5-5.1); SODIUM 138 mmol/L (136-145)
== END | disposition home or self-care (01) ==
LOC: LAB 14:37
PROVIDERS: ATTEND Internal Medicine
DX: R70.0 Elevated erythrocyte sedimentation rate (principal)

== ENCOUNTER → 2021-08-29 | Outpatient (CLI) | payer MEDICARE | END | disposition home or self-care (01) | LOC: RAD 13:43 | PROVIDERS: ATTEND Internal Medicine | DX: M25.512 Pain in left shoulder (principal) ==

== ENCOUNTER → 2021-10-03 | Outpatient (CLI) | payer MEDICARE | END | disposition home or self-care (01) | LOC: US 07:57 | PROVIDERS: ATTEND Internal Medicine | DX: K76.0 Fatty (change of) liver, not elsewhere classified (principal); K80.20 Calculus of gallbladder without cholecystitis without obstruction; N20.0 Calculus of kidney ==

== ENCOUNTER → 2021-12-23 | Outpatient (CLI) | payer OTHER | END | disposition home or self-care (01) | LOC: RAD 13:03 | PROVIDERS: ATTEND Internal Medicine | DX: M19.031 Primary osteoarthritis, right wrist (principal) ==

== ENCOUNTER 2022-01-26 13:48 | Emergency (ER) | payer OTHER ==
[~2022-01-26] VITALS: Ht 177.8 cm; Wt 96.2 kg
[~2022-01-26 13:48] MED LIST changes: -OMEPRAZOLE20 M2 PO
[2022-01-26 14:11] LABS: BASO % 0.1 % (0.0-1.0); EOS # 0.1 10*3/uL (0.0-0.4); EOS % 1.3 % (1.0-4.0); HEMATOCRIT 40.9 % (42.0-52.0); LYMPH # 1.5 10*3/uL (1.3-4.4); LYMPH % 20.1 % (27.0-41.0); MEAN CELL VOLUME 89.3 fl (80.0-94.0); MEAN CORPUSCULAR HGB 30.1 pg (27.0-31.0); MEAN CORPUSCULAR HGB CONC 33.7 g/dl (33.0-37.0); MEAN PLATELET VOLUME 10.9 fl (9.6-12.3); MONO # 0.9 10*3/uL (0.1-1.0); MONO % 11.5 % (3.0-9.0); NEUT % 66.7 % (47.0-73.0); PLATELET COUNT AUTOMATED 260 10*3/uL (130-400); RED BLOOD COUNT 4.58 10*6/uL (4.50-5.90); RED CELL DISTRI WIDTH 13.5 % (0-14.5); WHITE BLOOD COUNT 7.5 10*3/uL (4.8-10.8)
[2022-01-26 14:28] LABS: ACT PARTIAL THROMBO TIME 28.6 SECONDS (20.0-32.1)
[2022-01-26 14:36] LABS: CREATININE 10.3 mg/dL (0.70-1.30); POTASSIUM 4.9 mmol/L (3.5-5.1); TOTAL PROTEIN 7.7 gm/dL (6.4-8.2)
[2022-01-27] MEDS ORDERED: CARBIDOPA LEVODOPA PO (18:44)
[2022-01-27] MEDS ORDERED: CLOPIDOGREL75 MG PO (19:04)
[2022-01-27] MEDS ORDERED: LISINOPRIL20 MG PO (19:04)
[2022-01-27] MEDS ORDERED: SERTRALINE HYDR50 MG PO (19:06)
[2022-01-27] MEDS ORDERED: HYDROCHLOROTH12.5 M2 PO (19:07)
== END 2022-01-26 15:21 | disposition left against medical advice (07) ==
LOC: ED 13:48
PROVIDERS: Emergency Medicine
DX: I48.20 Chronic atrial fibrillation, unspecified (principal); I95.9 Hypotension, unspecified

== ENCOUNTER 2022-01-27 14:17 | Inpatient (IN) | payer OTHER ==
[2022-01-27] VITALS (10 sets, daily range): BP systolic 62–116; BP diastolic 00–67
[~2022-01-27] VITALS: Ht 177.8 cm; Wt 94.5 kg
[2022-01-27 15:04] LABS: BASO % 0.3 % (0.0-1.0); EOS # 0.2 10*3/uL (0.0-0.4); EOS % 2.9 % (1.0-4.0); HEMATOCRIT 38.9 % (42.0-52.0); LYMPH # 1.3 10*3/uL (1.3-4.4); LYMPH % 22.2 % (27.0-41.0); MEAN CELL VOLUME 89.8 fl (80.0-94.0); MEAN CORPUSCULAR HGB 30.5 pg (27.0-31.0); MEAN CORPUSCULAR HGB CONC 33.9 g/dl (33.0-37.0); MONO # 0.6 10*3/uL (0.1-1.0); MONO % 10.7 % (3.0-9.0); NEUT # 3.7 10*3/uL (2.3-7.9); NEUT % 63.6 % (47.0-73.0); PLATELET COUNT AUTOMATED 233 10*3/uL (130-400); RED BLOOD COUNT 4.33 10*6/uL (4.50-5.90); RED CELL DISTRI WIDTH 13.6 % (0-14.5); WHITE BLOOD COUNT 5.8 10*3/uL (4.8-10.8)
[2022-01-27 15:15] LABS: ACT PARTIAL THROMBO TIME 29.7 SECONDS (20.0-32.1)
[2022-01-27 15:19] LABS: CREATININE 10.9 mg/dL (0.70-1.30); POTASSIUM 4.3 mmol/L (3.5-5.1); TOTAL PROTEIN 7.2 gm/dL (6.4-8.2)
[2022-01-27] MEDS ORDERED: CARBIDOPA LEVODOPA PO (18:44)
[2022-01-27] MEDS ORDERED: LISINOPRIL20 MG PO (19:04)
[2022-01-27] MEDS ORDERED: CLOPIDOGREL75 MG PO (19:04)
[2022-01-27] MEDS ORDERED: SERTRALINE HYDR50 MG PO (19:06)
[2022-01-27] MEDS ORDERED: HYDROCHLOROTH12.5 M2 PO (19:07)
[2022-01-27 19:47] LABS: BILIRUBIN Negative (Negative); BLOOD Negative (Negative); CLARITY Clear (Clear); COLOR Yellow (Yellow); GLUCOSE Negative (Negative); KETONE Negative (Negative); LEUKO ESTERASE Negative (Negative); NITRITE Negative (Negative); SPECIFIC GRAVITY 1.015 (1.001-1.030); UROBILINOGEN 0.2 E.U./dl (0.0-1.0)
[2022-01-27 19:58] LABS: HYALINE CAST 16-20
[2022-01-27 19:59] LABS: BACTERIA 3+
[2022-01-28] VITALS: BP 94/56
[2022-01-28 04:00] VITALS: BP 96/61
[2022-01-28 05:33] LABS: POTASSIUM 4.5 mmol/L (3.5-5.1); TOTAL PROTEIN 6.6 gm/dL (6.4-8.2)
[2022-01-28 05:35] LABS: CREATININE 6.8 mg/dL (0.70-1.30)
[2022-01-28 06:17] LABS: BASO % 0.5 % (0.0-1.0); EOS # 0.2 10*3/uL (0.0-0.4); EOS % 3.5 % (1.0-4.0); HEMATOCRIT 36.6 % (42.0-52.0); LYMPH # 1.4 10*3/uL (1.3-4.4); LYMPH % 20.7 % (27.0-41.0); MEAN CELL VOLUME 88.8 fl (80.0-94.0); MEAN CORPUSCULAR HGB 30.1 pg (27.0-31.0); MEAN CORPUSCULAR HGB CONC 33.9 g/dl (33.0-37.0); MEAN PLATELET VOLUME 11.4 fl (9.6-12.3); MONO # 0.9 10*3/uL (0.1-1.0); MONO % 12.8 % (3.0-9.0); NEUT # 4.1 10*3/uL (2.3-7.9); PLATELET COUNT AUTOMATED 231 10*3/uL (130-400); RED BLOOD COUNT 4.12 10*6/uL (4.50-5.90); RED CELL DISTRI WIDTH 13.6 % (0-14.5); WHITE BLOOD COUNT 6.6 10*3/uL (4.8-10.8)
[2022-01-28 07:48] VITALS: BP 116/43
[2022-01-28 16:00] VITALS: BP 99/72
[2022-01-28 20:00] VITALS: BP 111/62
[2022-01-29] VITALS: BP 111/65
[2022-01-29 04:00] VITALS: BP 109/74
[2022-01-29 05:09] LABS: CREATININE 2.62 mg/dL (0.70-1.30); POTASSIUM 4.5 mmol/L (3.5-5.1)
[2022-01-29 06:04] LABS: BASO % 0.6 % (0.0-1.0); EOS # 0.2 10*3/uL (0.0-0.4); EOS % 4.2 % (1.0-4.0); HEMATOCRIT 36.6 % (42.0-52.0); LYMPH # 1.5 10*3/uL (1.3-4.4); LYMPH % 28.7 % (27.0-41.0); MEAN CELL VOLUME 89.7 fl (80.0-94.0); MEAN CORPUSCULAR HGB 30.6 pg (27.0-31.0); MEAN CORPUSCULAR HGB CONC 34.2 g/dl (33.0-37.0); MEAN PLATELET VOLUME 11.2 fl (9.6-12.3); MONO # 0.8 10*3/uL (0.1-1.0); MONO % 14.8 % (3.0-9.0); NEUT # 2.7 10*3/uL (2.3-7.9); NEUT % 51.3 % (47.0-73.0); PLATELET COUNT AUTOMATED 225 10*3/uL (130-400); RED BLOOD COUNT 4.08 10*6/uL (4.50-5.90); RED CELL DISTRI WIDTH 13.7 % (0-14.5); WHITE BLOOD COUNT 5.2 10*3/uL (4.8-10.8)
[2022-01-29 08:00] VITALS: BP 112/78
[2022-01-29 12:00] VITALS: BP 105/70
[2022-01-29 16:00] VITALS: BP 124/85
[2022-01-29 20:00] VITALS: BP 120/74
[2022-01-30] VITALS: BP 145/82
[2022-01-30 05:59] LABS: CHLORIDE 116 mmol/L (98-107); CREATININE 1.39 mg/dL (0.70-1.30); POTASSIUM 4.4 mmol/L (3.5-5.1); SODIUM 143 mmol/L (136-145)
[2022-01-30 06:04] LABS: BASO % 0.5 % (0.0-1.0); EOS # 0.3 10*3/uL (0.0-0.4); EOS % 4.7 % (1.0-4.0); HEMATOCRIT 36.5 % (42.0-52.0); LYMPH # 1.5 10*3/uL (1.3-4.4); LYMPH % 27.3 % (27.0-41.0); MEAN CELL VOLUME 90.3 fl (80.0-94.0); MEAN CORPUSCULAR HGB 30.2 pg (27.0-31.0); MEAN CORPUSCULAR HGB CONC 33.4 g/dl (33.0-37.0); MONO # 0.7 10*3/uL (0.1-1.0); MONO % 13.1 % (3.0-9.0); PLATELET COUNT AUTOMATED 206 10*3/uL (130-400); RED BLOOD COUNT 4.04 10*6/uL (4.50-5.90); RED CELL DISTRI WIDTH 13.7 % (0-14.5); WHITE BLOOD COUNT 5.6 10*3/uL (4.8-10.8)
[2022-01-30 06:11] LABS: BUN 46 mg/dl (7-24)
[2022-01-30 12:00] VITALS: BP 132/80
[2022-01-30 12:07] LABS: CREATININE,URINE 50.7 mg/dL (Not Estab.); MICRO ALBUMIN/CRE RATIO <6 (0-29)
== END 2022-01-30 14:59 | disposition home or self-care (01) | DRG 683 ==
LOC: ED 14:17 → EDHOLD 16:26 → ICCU 16:26 → EDHOLD 16:42 → ICCU 17:08 → 4E 01-29 17:41
PROVIDERS: Emergency Medicine; Internal Medicine Nephrology; ADMIT Internal Medicine; ATTEND Internal Medicine
DX: N17.0 Acute kidney failure with tubular necrosis (principal); E44.0 Moderate protein-calorie malnutrition; E87.2 Acidosis; I48.0 Paroxysmal atrial fibrillation; K21.9 Gastro-esophageal reflux disease without esophagitis; I25.10 Atherosclerotic heart disease of native coronary artery without angina pectoris; K22.70 Barrett's esophagus without dysplasia; I95.9 Hypotension, unspecified; I10 Essential (primary) hypertension; G62.9 Polyneuropathy, unspecified; E78.2 Mixed hyperlipidemia; E86.0 Dehydration; Z95.1 Presence of aortocoronary bypass graft; Z87.891 Personal history of nicotine dependence; Z68.29 Body mass index [BMI] 29.0-29.9, adult; Z88.8 Allergy status to other drugs, medicaments and biological substances; Z79.899 Other long term (current) drug therapy; Z80.0 Family history of malignant neoplasm of digestive organs

== ENCOUNTER 2022-08-28 13:34 | Emergency (ER) | payer OTHER ==
[~2022-08-28] VITALS: Wt 95.3 kg
[~2022-08-28 13:34] MED LIST changes: +CARBIDOPA LEVODOPA PO; +CLOPIDOGREL75 MG PO; +HYDROCHLOROTH12.5 M2 PO; +LISINOPRIL20 MG PO; +SERTRALINE HYDR50 MG PO
[2022-08-28 14:09] LABS: BASO % 0.4 % (0.0-1.0); EOS # 0.2 10*3/uL (0.0-0.4); EOS % 2.1 % (1.0-4.0); HEMATOCRIT 43.5 % (42.0-52.0); LYMPH # 1.5 10*3/uL (1.3-4.4); MEAN CELL VOLUME 93.5 fl (80.0-94.0); MEAN CORPUSCULAR HGB 31.6 pg (27.0-31.0); MEAN CORPUSCULAR HGB CONC 33.8 g/dl (33.0-37.0); MEAN PLATELET VOLUME 10.5 fl (9.6-12.3); MONO # 1.1 10*3/uL (0.1-1.0); MONO % 10.3 % (3.0-9.0); NEUT # 7.8 10*3/uL (2.3-7.9); NEUT % 72.7 % (47.0-73.0); PLATELET COUNT AUTOMATED 253 10*3/uL (130-400); RED BLOOD COUNT 4.65 10*6/uL (4.50-5.90); RED CELL DISTRI WIDTH 13.4 % (0-14.5); WHITE BLOOD COUNT 10.7 10*3/uL (4.8-10.8)
[2022-08-28 14:19] LABS: ACT PARTIAL THROMBO TIME 27.3 SECONDS (20.0-32.1)
[2022-08-28 14:28] LABS: ALKALINE PHOSPHATASE 109 U/L (46-116); BUN 17 mg/dl (9-23); CHLORIDE 94 mmol/L (98-107); POTASSIUM 3.6 mmol/L (3.4-5.1); SGPT/ALT < 7 U/L (10-49); TOTAL PROTEIN 7.4 gm/dL (6.0-8.0)
== END 2022-08-28 16:58 | disposition home or self-care (01) ==
LOC: ED 13:34
PROVIDERS: Nurse Practitioner Family
DX: K44.9 Diaphragmatic hernia without obstruction or gangrene (principal); R91.1 Solitary pulmonary nodule; Z79.899 Other long term (current) drug therapy; Z98.890 Other specified postprocedural states; Z87.891 Personal history of nicotine dependence

== ENCOUNTER → 2022-11-05 | Day surgery (SDC) | payer OTHER ==
[~2022-11-05] VITALS: Wt 90.7 kg
[~2022-11-05] MED LIST changes: +FLOMAX0.4 MG PO; +PROTONIX40 MG PO; +TYLENOL EXTRA500 MG PO
[2022-11-05 08:32] VITALS: BP 131/84
[2022-11-05 09:29] VITALS: BP 98/64
[2022-11-05 09:44] VITALS: BP 99/69
[2022-11-05 09:58] VITALS: BP 104/64
== END | disposition home or self-care (01) ==
LOC: SDC 11-02 12:30
PROVIDERS: ATTEND Surgery
DX: R13.10 Dysphagia, unspecified (principal); K22.70 Barrett's esophagus without dysplasia; J38.7 Other diseases of larynx; I25.10 Atherosclerotic heart disease of native coronary artery without angina pectoris; G62.9 Polyneuropathy, unspecified; Z86.73 Personal history of transient ischemic attack (TIA), and cerebral infarction without residual deficits; K44.9 Diaphragmatic hernia without obstruction or gangrene; I10 Essential (primary) hypertension; G20 Parkinson's disease; K21.9 Gastro-esophageal reflux disease without esophagitis; F41.9 Anxiety disorder, unspecified; Z87.891 Personal history of nicotine dependence; Z79.899 Other long term (current) drug therapy

== ENCOUNTER → 2022-12-28 | Day surgery (SDC) | payer OTHER ==
[~2022-12-28] VITALS: Ht 177.8 cm; Wt 90.7 kg
[~2022-12-28] MED LIST changes: +COLACE100 MG PO; +HYDROCODONE-AC1 EAC1 PO; +ONDANSETRON HYDR4 M1 PO
[2022-12-28 09:46] VITALS: BP 115/80
[2022-12-28 11:10] VITALS: BP 161/93
[2022-12-28 11:25] VITALS: BP 160/102
[2022-12-28 11:40] VITALS: BP 139/83
[2022-12-28 11:53] VITALS: BP 149/98
[2022-12-28 12:10] VITALS: BP 154/88
== END | disposition home or self-care (01) ==
LOC: SDC 12-17 12:30
PROVIDERS: ATTEND Surgery
DX: K42.0 Umbilical hernia with obstruction, without gangrene (principal); I25.2 Old myocardial infarction; K21.9 Gastro-esophageal reflux disease without esophagitis; F41.9 Anxiety disorder, unspecified; Z87.891 Personal history of nicotine dependence; I25.10 Atherosclerotic heart disease of native coronary artery without angina pectoris; I11.0 Hypertensive heart disease with heart failure; G20 Parkinson's disease; I50.9 Heart failure, unspecified; Z86.73 Personal history of transient ischemic attack (TIA), and cerebral infarction without residual deficits

== ENCOUNTER 2023-04-02 10:32 | Emergency (ER) | payer OTHER ==
[~2023-04-02] VITALS: Ht 177.8 cm; Wt 90.7 kg
[2023-04-02 11:11] LABS: BASO % 0.1 % (0.0-1.0); EOS # 0.1 10*3/uL (0.0-0.4); EOS % 0.3 % (1.0-4.0); HEMATOCRIT 43.8 % (42.0-52.0); LYMPH % 6.2 % (27.0-41.0); MEAN CELL VOLUME 92.6 fl (80.0-94.0); MEAN CORPUSCULAR HGB 31.3 pg (27.0-31.0); MEAN CORPUSCULAR HGB CONC 33.8 g/dl (33.0-37.0); MEAN PLATELET VOLUME 10.2 fl (9.6-12.3); MONO # 1.1 10*3/uL (0.1-1.0); MONO % 7.4 % (3.0-9.0); NEUT # 13.1 10*3/uL (2.3-7.9); NEUT % 85.6 % (47.0-73.0); PLATELET COUNT AUTOMATED 276 10*3/uL (130-400); RED BLOOD COUNT 4.73 10*6/uL (4.50-5.90); RED CELL DISTRI WIDTH 13.2 % (0-14.5); WHITE BLOOD COUNT 15.3 10*3/uL (4.8-10.8)
[2023-04-02 11:36] LABS: ALKALINE PHOSPHATASE 91 U/L (46-116); BUN 12 mg/dl (9-23); CHLORIDE 101 mmol/L (98-107); LIPASE 41 U/L (12-53); POTASSIUM 3.6 mmol/L (3.4-5.1); SGPT/ALT 15 U/L (10-49); TOTAL PROTEIN 7.6 gm/dL (6.0-8.0)
[2023-04-02 13:33] LABS: BILIRUBIN Negative (Negative); BLOOD Negative (Negative); CLARITY Clear (Clear); COLOR Yellow (Yellow); GLUCOSE Negative (Negative); KETONE Negative (Negative); LEUKO ESTERASE Negative (Negative); NITRITE Negative (Negative); SPECIFIC GRAVITY >= 1.030 (1.001-1.030); UROBILINOGEN 0.2 E.U./dl (0.0-1.0)
[2023-04-02 13:45] LABS: RBC 0-2 rbc/hpf (0-2); WBC 0-2 wbc/hpf (0-5)
[2023-04-02 15:18] LABS: ACT PARTIAL THROMBO TIME 27.4 SECONDS (20.0-32.1)
== END 2023-04-02 17:17 | disposition short-term general hospital (02) ==
LOC: ED 10:32
PROVIDERS: Emergency Medicine
DX: K35.80 Unspecified acute appendicitis (principal); Z98.890 Other specified postprocedural states; Z87.891 Personal history of nicotine dependence; F10.10 Alcohol abuse, uncomplicated

== ENCOUNTER 2023-04-12 12:05 | Emergency (ER) | payer OTHER ==
[~2023-04-12] VITALS: Ht 177.8 cm; Wt 317.5 kg
[2023-04-12 12:31] LABS: BASO % 0.2 % (0.0-1.0); EOS # 0.2 10*3/uL (0.0-0.4); EOS % 1.4 % (1.0-4.0); HEMATOCRIT 38.4 % (42.0-52.0); LYMPH # 1.2 10*3/uL (1.3-4.4); LYMPH % 9.3 % (27.0-41.0); MEAN CELL VOLUME 94.6 fl (80.0-94.0); MEAN CORPUSCULAR HGB 31.3 pg (27.0-31.0); MEAN CORPUSCULAR HGB CONC 33.1 g/dl (33.0-37.0); MEAN PLATELET VOLUME 9.4 fl (9.6-12.3); MONO # 0.9 10*3/uL (0.1-1.0); MONO % 7.4 % (3.0-9.0); NEUT # 10.1 10*3/uL (2.3-7.9); NEUT % 81.1 % (47.0-73.0); PLATELET COUNT AUTOMATED 426 10*3/uL (130-400); RED BLOOD COUNT 4.06 10*6/uL (4.50-5.90); WHITE BLOOD COUNT 12.5 10*3/uL (4.8-10.8)
[2023-04-12] MEDS ORDERED: TAMSULOSIN HCL0.4 MG PO (12:37)
[2023-04-12] MEDS ORDERED: ASPIRIN ADULT L81 M1 PO (12:39)
[2023-04-12] MEDS ORDERED: VITAMIN D250 MC1 PO (12:39)
[2023-04-12] MEDS ORDERED: ACID REDUCER20 MG PO (12:41)
[2023-04-12 12:55] LABS: ALKALINE PHOSPHATASE 70 U/L (46-116); BUN 7 mg/dl (9-23); CHLORIDE 108 mmol/L (98-107); POTASSIUM 3.7 mmol/L (3.4-5.1); SGPT/ALT 15 U/L (10-49); TOTAL PROTEIN 7.2 gm/dL (6.0-8.0)
[2023-04-12 12:57] LABS: ACT PARTIAL THROMBO TIME 29.9 SECONDS (20.0-32.1)
== END 2023-04-12 14:35 | disposition left against medical advice (07) ==
LOC: ED 12:05
PROVIDERS: Emergency Medicine
DX: R07.89 Other chest pain (principal); R06.02 Shortness of breath; R51.9 Headache, unspecified; M54.9 Dorsalgia, unspecified; I10 Essential (primary) hypertension; I25.2 Old myocardial infarction; F41.9 Anxiety disorder, unspecified; K21.9 Gastro-esophageal reflux disease without esophagitis; Z98.890 Other specified postprocedural states; Z95.5 Presence of coronary angioplasty implant and graft; F10.10 Alcohol abuse, uncomplicated; Z87.891 Personal history of nicotine dependence

== ENCOUNTER 2023-04-14 14:31 | Emergency (ER) | payer OTHER ==
[~2023-04-14] VITALS: Ht 177.8 cm; Wt 96.2 kg
[~2023-04-14 14:31] MED LIST changes: +ACID REDUCER20 MG PO; +ASPIRIN ADULT L81 M1 PO; +TAMSULOSIN HCL0.4 MG PO; +VITAMIN D250 MC1 PO
[2023-04-14 15:32] LABS: BASO % 0.4 % (0.0-1.0); EOS # 0.2 10*3/uL (0.0-0.4); EOS % 2.1 % (1.0-4.0); LYMPH # 1.7 10*3/uL (1.3-4.4); LYMPH % 17.4 % (27.0-41.0); MEAN CELL VOLUME 96.6 fl (80.0-94.0); MEAN CORPUSCULAR HGB 31.4 pg (27.0-31.0); MEAN CORPUSCULAR HGB CONC 32.5 g/dl (33.0-37.0); MEAN PLATELET VOLUME 9.5 fl (9.6-12.3); MONO % 9.6 % (3.0-9.0); PLATELET COUNT AUTOMATED 479 10*3/uL (130-400); RED BLOOD COUNT 4.14 10*6/uL (4.50-5.90); RED CELL DISTRI WIDTH 14.4 % (0-14.5)
[2023-04-14 15:43] LABS: ACT PARTIAL THROMBO TIME 29.5 SECONDS (20.0-32.1)
[2023-04-14 15:56] LABS: ALKALINE PHOSPHATASE 77 U/L (46-116); BUN 10 mg/dl (9-23); CHLORIDE 106 mmol/L (98-107); LIPASE 40 U/L (12-53); POTASSIUM 4.1 mmol/L (3.4-5.1); TOTAL PROTEIN 7.4 gm/dL (6.0-8.0)
[2023-04-14 15:58] LABS: SGPT/ALT < 7 U/L (10-49)
[2023-04-14] MEDS ORDERED: SINEMET 10-1001 EACH PO (16:24)
[2023-04-14] MEDS ORDERED: Carafate1 GM PO (16:25)
== END 2023-04-14 18:53 | disposition left against medical advice (07) ==
LOC: ED 14:31
PROVIDERS: Emergency Medicine
DX: R07.89 Other chest pain (principal); R91.1 Solitary pulmonary nodule; I10 Essential (primary) hypertension; I25.2 Old myocardial infarction; F41.9 Anxiety disorder, unspecified; Z98.890 Other specified postprocedural states; Z95.5 Presence of coronary angioplasty implant and graft; F10.10 Alcohol abuse, uncomplicated; Z87.891 Personal history of nicotine dependence

== ENCOUNTER → 2023-05-12 | Outpatient (CLI) | payer OTHER ==
[~2023-05-12] MED LIST changes: +Carafate1 GM PO; +SINEMET 10-1001 EACH PO
== END | disposition home or self-care (01) ==
LOC: CARD 00:17
PROVIDERS: ATTEND Internal Medicine
DX: I25.9 Chronic ischemic heart disease, unspecified (principal); R07.9 Chest pain, unspecified

== ENCOUNTER 2023-05-28 20:26 | Emergency (ER) | payer OTHER ==
[~2023-05-28] VITALS: Ht 172.7 cm; Wt 90.7 kg
[2023-05-28 20:44] LABS: BASO % 0.3 % (0.0-1.0); EOS # 0.2 10*3/uL (0.0-0.4); EOS % 2.4 % (1.0-4.0); HEMATOCRIT 38.7 % (42.0-52.0); LYMPH # 1.9 10*3/uL (1.3-4.4); LYMPH % 27.2 % (27.0-41.0); MEAN CORPUSCULAR HGB 31.3 pg (27.0-31.0); MEAN CORPUSCULAR HGB CONC 33.6 g/dl (33.0-37.0); MEAN PLATELET VOLUME 10.2 fl (9.6-12.3); MONO # 1.1 10*3/uL (0.1-1.0); NEUT # 3.9 10*3/uL (2.3-7.9); PLATELET COUNT AUTOMATED 300 10*3/uL (130-400); RED BLOOD COUNT 4.16 10*6/uL (4.50-5.90); RED CELL DISTRI WIDTH 14.4 % (0-14.5)
[2023-05-28 21:02] LABS: ACT PARTIAL THROMBO TIME 28.2 SECONDS (20.0-32.1)
[2023-05-28 21:04] LABS: ALKALINE PHOSPHATASE 94 U/L (46-116); BUN 11 mg/dl (9-23); CHLORIDE 107 mmol/L (98-107); POTASSIUM 3.4 mmol/L (3.4-5.1); SGPT/ALT 10 U/L (10-49); TOTAL PROTEIN 7.2 gm/dL (6.0-8.0)
== END 2023-05-28 22:28 | disposition short-term general hospital (02) ==
LOC: ED 20:26
PROVIDERS: Internal Medicine
DX: I21.4 Non-ST elevation (NSTEMI) myocardial infarction (principal); Z79.899 Other long term (current) drug therapy; Z79.82 Long term (current) use of aspirin; Z95.5 Presence of coronary angioplasty implant and graft; Z90.49 Acquired absence of other specified parts of digestive tract; Z87.891 Personal history of nicotine dependence

== ENCOUNTER 2023-12-13 10:55 | Emergency (ER) | payer MEDICARE ==
[~2023-12-13] VITALS: Ht 177.8 cm; Wt 70.8 kg
[2023-12-13] MEDS ORDERED: MULTIVITAMIN CONCENTRATE (IV) 10 ML,Thiamine 100 MG,FOLIC ACID 1 MG in SODIUM CHLORIDE ... IV ONE (11:30)
[2023-12-13 12:10] LABS: BASO % 0.6 % (0.0-1.0); EOS # 0.1 10*3/uL (0.0-0.4); EOS % 1.7 % (1.0-4.0); HEMATOCRIT 42.7 % (42.0-52.0); LYMPH # 1.3 10*3/uL (1.3-4.4); LYMPH % 39.1 % (27.0-41.0); MEAN CELL VOLUME 90.7 fl (80.0-94.0); MEAN CORPUSCULAR HGB 30.1 pg (27.0-31.0); MEAN CORPUSCULAR HGB CONC 33.3 g/dl (33.0-37.0); MEAN PLATELET VOLUME 10.3 fl (9.6-12.3); MONO # 0.4 10*3/uL (0.1-1.0); NEUT # 1.6 10*3/uL (2.3-7.9); NEUT % 46.3 % (47.0-73.0); PLATELET COUNT AUTOMATED 280 10*3/uL (130-400); RED BLOOD COUNT 4.71 10*6/uL (4.50-5.90); RED CELL DISTRI WIDTH 14.4 % (0-14.5); WHITE BLOOD COUNT 3.4 10*3/uL (4.8-10.8)
[2023-12-13 12:20] LABS: ACT PARTIAL THROMBO TIME 28.8 SECONDS (20.0-32.1)
[2023-12-13 12:31] LABS: ALKALINE PHOSPHATASE 121 U/L (46-116); BUN 19 mg/dl (9-23); CHLORIDE 103 mmol/L (98-107); POTASSIUM 2.6 mmol/L (3.4-5.1); TOTAL PROTEIN 7.8 gm/dL (6.0-8.0)
[2023-12-13 12:33] LABS: SGPT/ALT < 7 U/L (5-49)
[2023-12-13] MEDS ORDERED: POTASSIUM CHLORIDE 20 MEQ TAB PO ONE (12:40)
== END 2023-12-13 14:30 | disposition home or self-care (01) ==
LOC: ED 10:55
PROVIDERS: Internal Medicine
DX: F10.129 Alcohol abuse with intoxication, unspecified (principal); R55 Syncope and collapse; I10 Essential (primary) hypertension; I25.2 Old myocardial infarction; K21.9 Gastro-esophageal reflux disease without esophagitis; F41.9 Anxiety disorder, unspecified; Z98.890 Other specified postprocedural states; Z95.5 Presence of coronary angioplasty implant and graft; Z90.49 Acquired absence of other specified parts of digestive tract; F10.10 Alcohol abuse, uncomplicated; Z87.891 Personal history of nicotine dependence; Y90.6 Blood alcohol level of 120-199 mg/100 ml

== ENCOUNTER 2023-12-23 16:12 | Emergency (ER) | payer MEDICARE ==
[~2023-12-23] VITALS: Ht 177.8 cm; Wt 65.8 kg
[2023-12-23] MEDS ORDERED: SODIUM CHLORIDE 0.9% 1,000 ML IV ONE (16:47)
[2023-12-23 17:16] LABS: BASO % 0.1 % (0.0-1.0); EOS % 0.6 % (1.0-4.0); HEMATOCRIT 37.8 % (42.0-52.0); LYMPH # 0.9 10*3/uL (1.3-4.4); LYMPH % 13.6 % (27.0-41.0); MEAN CELL VOLUME 93.6 fl (80.0-94.0); MEAN CORPUSCULAR HGB 30.7 pg (27.0-31.0); MEAN CORPUSCULAR HGB CONC 32.8 g/dl (33.0-37.0); MEAN PLATELET VOLUME 10.1 fl (9.6-12.3); MONO # 0.6 10*3/uL (0.1-1.0); MONO % 8.3 % (3.0-9.0); NEUT # 5.2 10*3/uL (2.3-7.9); NEUT % 77.1 % (47.0-73.0); PLATELET COUNT AUTOMATED 228 10*3/uL (130-400); RED BLOOD COUNT 4.04 10*6/uL (4.50-5.90); RED CELL DISTRI WIDTH 13.9 % (0-14.5); WHITE BLOOD COUNT 6.8 10*3/uL (4.8-10.8)
[2023-12-23 17:34] LABS: ALKALINE PHOSPHATASE 110 U/L (46-116); BUN 29 mg/dl (9-23); CHLORIDE 102 mmol/L (98-107); POTASSIUM 3.3 mmol/L (3.4-5.1); SGPT/ALT < 7 U/L (5-49); TOTAL PROTEIN 6.7 gm/dL (6.0-8.0)
== END 2023-12-23 19:19 | disposition left against medical advice (07) ==
LOC: ED 16:12
PROVIDERS: Internal Medicine
DX: R42 Dizziness and giddiness (principal); R55 Syncope and collapse; E86.0 Dehydration; E87.6 Hypokalemia; I10 Essential (primary) hypertension; I25.2 Old myocardial infarction; F41.9 Anxiety disorder, unspecified; Z98.890 Other specified postprocedural states; Z95.5 Presence of coronary angioplasty implant and graft; Z90.49 Acquired absence of other specified parts of digestive tract; F10.10 Alcohol abuse, uncomplicated; Z87.891 Personal history of nicotine dependence; Z53.29 Procedure and treatment not carried out because of patient's decision for other reasons